=== PATIENT | female | born 1970 | race Caucasian/White ===

== ENCOUNTER 2017-08-06 09:30 | Emergency (ER) | payer MEDICARE ==
[2017-08-06 09:47] VITALS: BMI 26.2
[2017-08-06 10:07] VITALS: TEMP 98.3
--- NOTE | 2017-08-06 12:30 | RAD ---
PROCEDURE: Right Wrist Radiographs. HISTORY: wrist pain/swelling COMPARISON: 07/17/2015 FINDINGS: BONES: There is a prosthesis in the distal ulna. There has been previous fusion of the radius and carpal bones. The findings are unchanged. No acute fracture JOINTS: Normal. No dislocation. SOFT TISSUES: Normal. OTHER FINDINGS: None. IMPRESSION: No acute fracture
--- NOTE | 2017-08-06 12:36 | ED PDOC ---
Arrival/HPI - General Chief Complaint: Finger,Hand,&Wrist Time Seen by Provider: 08/06/17 10:34 Historian: Patient - History of Present Illness Narrative History of Present Illness (Text): 08/06/17 12:37 47yr old female with right wrist pain and swelling. pt with hx of multiple prior surgeries on right wrist. pt states she woke up yesterday with swelling to the dorsal aspect of the right wrist with pain. pt states she took naproxen for pain. pt states she is worried that there is an issue with the hardware within her wrist. pt denies trauma or injury. Pt denies numbness or weakness. pt states she does have residual limited extension of right 5th finger from prior surgery. no other complaints. Time/Duration: Other (1 day) Past Medical History - Provider Review Nursing Documentation Reviewed: Yes - Travel History Have you recently traveled outside [place] w/in the past 3 mons?: No - Infectious Disease Hx of Infectious Diseases: None - Tetanus Immunization Tetanus Immunization: Unknown - Cardiac Hx Cardiac Disorders: Yes Hx Circulatory Problems: Yes Hx Heart Murmur: Yes Hx Hypertension: Yes - Pulmonary Hx Respiratory Disorders: Yes Hx Asthma: Yes Hx Pulmonary Embolism: Yes (november 17 2014) - Neurological Hx Neurological Disorder: Yes Other/Comment: peripheral neuropathy in arms and legs - HEENT Hx HEENT Disorder: No - Renal Hx Renal Disorder: No - Endocrine/Metabolic Hx Endocrine Disorders: No - Hematological/Oncological Hx Blood Disorders: Yes Hx Anemia: Yes - Integumentary Hx Dermatological Disorder: Yes - Musculoskeletal/Rheumatological Hx Musculoskeletal Disorders: Yes Hx Degenerative Joint Disease: Yes Hx Falls: No Hx Herniated Disk: Yes (cervical lumbar) Hx Rheumatoid Arthritis: Yes Other/Comment: NECK PAIN - Gastrointestinal Hx Gastrointestinal Disorders: No - Genitourinary/Gynecological Hx Genitourinary Disorders: No - Psychiatric Hx Psychophysiologic Disorder: No Hx Substance Use: No - Surgical History Hx Appendectomy: Yes Hx Orthopedic Surgery: Yes (left wrist carpal tunnel repair right wrist) Hx Tubal Ligation: Yes - Anesthesia Hx Anesthesia: Yes Hx Anesthesia Reactions: No Hx Malignant Hyperthermia: No - Suicidal Assessment Feels Threatened In Home Enviroment: No Family/Social History - Physician Review Nursing Documentation Reviewed: Yes Family/Social History: Unknown Family HX Smoking Status: Never Smoked Hx Alcohol Use: No Hx Substance Use: No Hx Substance Use Treatment: No Allergies/Home Meds Allergies/Adverse Reactions: Allergies hydrocortisone Allergy (Verified 08/06/17 09:56) RASH latex Allergy (Verified 08/06/17 09:56) SHORTNESS OF BREATH nasal cannula Adverse Reaction (Uncoded 08/06/17 09:56) SHORTNESS OF BREATH Home Medications: Home Meds Medication Instructions Recorded Confirmed Prednisone [Prednisone] 1 tab PO DAILY 03/12/14 08/06/17 Tofacitinib Citrate [Xeljanz] 5 mg PO BID 11/17/14 08/06/17 Albuterol Sulfate [Ventolin Hfa] 2 puff IH BID PRN 06/07/15 08/06/17 Milnacipran HCl [Savella] 50 mg PO BID 06/25/15 08/06/17 Review of Systems - Review of Systems Constitutional: absent: Fatigue, Fevers Respiratory: absent: SOB, Cough Cardiovascular: absent: Chest Pain, Palpitations Gastrointestinal: absent: Abdominal Pain, Nausea, Vomiting Musculoskeletal: Arthralgias Skin: absent: Rash, Pruritis Psychiatric: absent: Anxiety, Depression Physical Exam Vital Signs Reviewed: Yes Vital Signs Temp Pulse Resp BP Pulse Ox 08/06/17 11:32 68 18 116/71 100 08/06/17 10:02 98.3 F 70 16 118/76 100 Temperature: Afebrile Blood Pressure: Normal Pulse: Regular Respiratory Rate: Normal Appearance: Positive for: Well-Appearing, Non-Toxic, Comfortable Pain Distress: None Mental Status: Positive for: Alert and Oriented X 3 - Systems Exam Head: Present: Atraumatic Respiratory/Chest: Present: Clear to Auscultation Cardiovascular: Present: Regular Rate and Rhythm Upper Extremity: Present: NORMAL PULSES, Tenderness (right wrist: + swelling noted to dorsal aspect of wrist over ulna; no erythema; limited rom of wrist; sensation and distal pulses intact. ), Swelling, Neurovascularly Intact, Capillary Refill < 2s. No: Normal ROM, Erythema, Deformity Neurological: Present: GCS=15 Skin: Present: Warm, Dry, Normal Color. No: Rashes Psychiatric: Present: Oriented x 3 Medical Decision Making ED Course and Treatment: 08/06/17 12:32 pt with right wrist pain; hx of prior surgery xray; FINDINGS: BONES: There is a prosthesis in the distal ulna. There has been previous fusion of the radius and carpal bones. The findings are unchanged. No acute fracture JOINTS: Normal. No dislocation. SOFT TISSUES: Normal. OTHER FINDINGS: None. IMPRESSION: No acute fracture pt placed in sugar tong splint; pt claims that there was erythema to a small portion of the dorsal wrist; There is no erythema at present time, but I will cover with keflex. pt was advised to f/u with orthopedist/surgeon within the next 2 days. impression: wrist pain motrin every 6 hours as needed for pain keflex; 1 capsule 4 times daily x 7 days follow up with the orthopedist within the next 2 days return if symptoms worsen,persist or if new symptoms develop. - RAD Interpretation Radiology Orders: 08/06/17 10:45 WRIST, RIGHT 3 VIEWS [RAD] Stat Procedures - Splinting Location: right wrist Hand-Made Type: fiberglass Splint: sugar tong Pre-Proc Neuro Vasc Exam: normal Post-Proc Neuro Vasc Exam: normal Disposition/Present on Arrival - Present on Arrival Any Indicators Present on Arrival: No History of DVT/PE: No History of Uncontrolled Diabetes: No Urinary Catheter: No History of Decub. Ulcer: No History Surgical Site Infection Following: None - Disposition Have Diagnosis and Disposition been Completed?: Yes Diagnosis: Wrist pain Disposition: HOME/ ROUTINE Disposition Time: 12:35 Patient Plan: Discharge Condition: GOOD Additional Instructions: tylenol every 4 hours as needed for pain keflex; 1 capsule 4 times daily x 7 days follow up with the orthopedist within the next 2 days return if symptoms worsen,persist or if new symptoms develop. Prescriptions: Cephalexin [Keflex] 500 mg PO QID #28 capsule Referrals: Reagan Francois MD [Staff Provider] - Follow up with primary [facility] [place] [Outside] - Follow up with primary Forms: [employer] (Syriac), WORK NOTE
[2017-08-06 13:04] VITALS: BP 117/72; PULSE 80; RESP 20; O2SAT 99
== END 2017-08-06 13:07 | disposition home or self-care (01) ==
LOC: ED 09:46
DX: M25.531 Pain in right wrist (principal); I10 Essential (primary) hypertension

== ENCOUNTER 2018-02-19 15:40 | Observation (INO) | payer MEDICARE, OTHER ==
[2018-02-19] MEDS ORDERED: Sodium Chloride 0.9% 1,000 ML IV STA ×2 (16:01→17:21)
[2018-02-19] MEDS ORDERED: Potassium Chloride 20 mEq/15 ml LIQ UD PO STA (16:14)
[2018-02-19 16:19] LABS: URINE BILIRUBIN NEGATIVE (NEGATIVE); URINE BLOOD NEGATIVE (NEGATIVE); URINE GLUCOSE (UA) NEGATIVE (NEGATIVE); URINE LEUKOCYTE ESTERASE NEGATIVE Leu/uL (NEGATIVE); URINE PROTEIN NEGATIVE mg/dL (<30 mg/dL); URINE UROBILINOGEN 0.2 E.U./dL (<1 E.U./dL)
--- NOTE | 2018-02-19 16:22 | ED PDOC ---
Arrival/HPI - General Chief Complaint: GI Problem Time Seen by Provider: 02/19/18 15:44 Historian: Patient - History of Present Illness Narrative History of Present Illness (Text): 02/19/18 16:19 47 yo F with past medical history of rheumatoid arthritis, complaining of intermittent nausea with vomiting for the past 2 years. Patient states that the nausea and vomiting comes in episodes and typically lasts for 1-2 days, however her current episode has been ongoing for about a week without improvement. States that she saw her allergy physician earlier today, had blood work done and was told that she had low potassium. She then called her primary care doctor who advised her to come to the emergency room to be evaluated and for possible observation in the hospital with possible consultation with a specialist. Patient states that the nausea with vomiting has never been worked up by a specialist and is not related to her RA or taking RA medications since the nausea and vomiting started prior to her taking RA medications. Otherwise reports no fever, chills, chest pain, palpitations, shortness of breath, abdominal pain, back pain, urinary symptoms, diarrhea. NAYAN Davila Past Medical History - Infectious Disease Hx of Infectious Diseases: None - Tetanus Immunization Tetanus Immunization: Unknown - Cardiac Hx Cardiac Disorders: Yes Hx Circulatory Problems: Yes Hx Heart Murmur: Yes Hx Hypertension: Yes - Pulmonary Hx Respiratory Disorders: Yes Hx Asthma: Yes Hx Pulmonary Embolism: Yes (november 17 2014) - Neurological Hx Neurological Disorder: Yes Other/Comment: peripheral neuropathy in arms and legs - HEENT Hx HEENT Disorder: No - Renal Hx Renal Disorder: No - Endocrine/Metabolic Hx Endocrine Disorders: No - Hematological/Oncological Hx Blood Disorders: Yes Hx Anemia: Yes - Integumentary Hx Dermatological Disorder: Yes - Musculoskeletal/Rheumatological Other/Comment: limited rom right wrist - Gastrointestinal Hx Gastrointestinal Disorders: No - Genitourinary/Gynecological Hx Genitourinary Disorders: No - Psychiatric Hx Psychophysiologic Disorder: No Hx Substance Use: No - Surgical History Hx Orthopedic Surgery: Yes (left wrist carpal tunnel repair right wrist radial carpal sx and fusion) - Anesthesia Hx Anesthesia: Yes Hx Anesthesia Reactions: No Hx Malignant Hyperthermia: No - Suicidal Assessment Feels Threatened In Home Enviroment: No Family/Social History Family/Social History: No Known Family HX Smoking Status: Never Smoked Hx Alcohol Use: No Hx Substance Use: No Hx Substance Use Treatment: No Allergies/Home Meds Allergies/Adverse Reactions: Allergies hydrocortisone Allergy (Verified 02/19/18 15:50) RASH latex Allergy (Verified 02/19/18 15:50) SHORTNESS OF BREATH nasal cannula Adverse Reaction (Uncoded 02/19/18 15:50) SHORTNESS OF BREATH Home Medications: Home Meds Medication Instructions Recorded Confirmed Milnacipran HCl [Savella] 50 mg PO BID 06/25/15 02/19/18 Aspirin [Lo-Dose Aspirin EC] 81 mg PO DAILY 02/19/18 02/19/18 Ibuprofen/Famotidine [Duexis 1 tab PO BID 02/19/18 02/19/18 800-26.6 mg Tablet] Montelukast [Singulair] 10 mg PO DAILY 02/19/18 02/19/18 Prednisone [Kaley] 5 mg PO DAILY 02/19/18 02/19/18 Tofacitinib Citrate [Xeljanz Xr] 11 mg PO DAILY 02/19/18 02/19/18 hydroCHLOROthiazide [Microzide] 50 mg PO DAILY 02/19/18 02/19/18 Review of Systems - Review of Systems Constitutional: absent: Fatigue, Fevers Respiratory: absent: SOB, Cough Cardiovascular: absent: Chest Pain, Palpitations Gastrointestinal: Nausea, Vomiting. absent: Abdominal Pain, Diarrhea Genitourinary Female: absent: Dysuria, Frequency Musculoskeletal: absent: Arthralgias, Back Pain Skin: absent: Rash, Pruritis, Skin Lesions Neurological: absent: Headache, Dizziness Physical Exam Vital Signs Temp Pulse Resp BP Pulse Ox 02/19/18 18:07 58 L 18 155/83 H 100 02/19/18 15:46 98.7 F 68 18 149/81 100 Temperature: Afebrile Blood Pressure: Normal Pulse: Regular Respiratory Rate: Normal Appearance: Positive for: Well-Appearing, Non-Toxic, Comfortable Pain Distress: None Mental Status: Positive for: Alert and Oriented X 3 - Systems Exam Head: Present: Atraumatic, Normocephalic Pupils: Present: PERRL Extroacular Muscles: Present: EOMI Conjunctiva: Present: Normal Mouth: Present: Dry Neck: Present: Normal Range of Motion. No: Lymphadenopathy Respiratory/Chest: Present: Clear to Auscultation, Good Air Exchange. No: Respiratory Distress, Accessory Muscle Use Cardiovascular: Present: Regular Rate and Rhythm, Normal S1, S2. No: Murmurs Abdomen: No: Tenderness, Distention, Peritoneal Signs, Rebound, Guarding Back: Present: Normal Inspection. No: CVA Tenderness, Midline Tenderness Upper Extremity: Present: Normal Inspection. No: Cyanosis, Edema Lower Extremity: Present: Normal Inspection. No: Edema Neurological: Present: GCS=15, CN II-XII Intact, Speech Normal, Motor Func Grossly Intact, Normal Sensory Function Skin: Present: Warm, Dry, Normal Color. No: Rashes Psychiatric: Present: Alert, Oriented x 3, Normal Insight, Normal Concentration Medical Decision Making ED Course and Treatment: 02/19/18 16:23 Patient had labs done earlier today and results reviewed, K 2.9. Rest of the labs from earlier today : wbc 7.9 / hgb 13.1 / hct 38.4 / plt 373 Na 136 / Cl 95 / Co2 29 / Bun 15 / creat 0.6 / glucose 95 / Ca 9.9 Plan : - IV - Labs - Zofran IV - CMP - UA - KCl PO x2 - KCl IV x2 riders EKG: NSR at 64 bpm, no acute ST changes, as read by PA. 02/19/18 17:10 Labs reviewed repeat K 3.4. KCl IV cancelled. Patient still given PO KCl. Case d/w Dr. Davila, who still request observation for dehydration and with GI consult to Dr. Amaro 02/19/18 17:15 Case d/w the hospitalist Dr. Barroso, agrees to plan for further observation. Patient notified of plan for further observation, which she agrees to. - Lab Interpretations Lab Results: 02/19/18 16:42 Lab Results 02/19/18 16:42: Sodium 137, Potassium 3.4 L, Chloride 98, Carbon Dioxide 27, Anion Gap 15, BUN 13, Creatinine 0.6 L, Est GFR ( Amer) > 60, Est GFR ( Non-Af Amer) > 60, Random Glucose 93, Calcium 10.0, Total Bilirubin 0.4, AST 35 , ALT 24, Alkaline Phosphatase 73, Total Protein 8.8 H, Albumin 5.0 H, Globulin 3.8, Albumin/Globulin Ratio 1.3 02/19/18 16:05: Urine Color Light yellow, Urine Appearance Clear, Urine pH 7.0, Ur Specific [place] <= 1.005, Urine Protein Negative, Urine Glucose (UA) Negative, Urine Ketones Negative, Urine Blood Negative, Urine Nitrate Negative, Urine Bilirubin Negative, Urine Urobilinogen 0.2, Ur Leukocyte Esterase Negative - Medication Orders Current Medication Orders: Acetaminophen (Tylenol 325mg Tab) 650 mg PO Q6H PRN PRN Reason: Fever >100.4 F Diphenhydramine HCl (Benadryl) 25 mg PO DAILY PRN PRN Reason: Allergy symptoms Sodium Chloride (Sodium Chloride 0.9%) 1,000 mls @ 100 mls/hr IV .Q10H STA Stop: 02/20/18 03:20 Potassium Chloride 40 meq/ (Sodium Chloride) 1,020 mls @ 100 mls/hr IV .[id number] [facility] Montelukast Sodium (Singulair) 10 mg PO DAILY [facility] Home Med - Milnacipran Hcl [ Savella] 50 Mg 50 mg PO BID [facility] Home Med - Tofacitinib Citrate [Xeljanz Xr] 11 Mg 11 mg PO DAILY [facility] Ondansetron HCl (Zofran Inj) 4 mg IVP Q12H PRN PRN Reason: Nausea/Vomiting Last Admin: 02/19/18 20:00 Dose: 4 mg IVP Administration Document 02/19/18 20:00 [facility] (Rec: 02/19/18 20:00 [place] [id number]) Charges for Administration # of IVP Administrations 1 Pantoprazole Sodium (Protonix Inj) 40 mg IVP DAILY [facility] Last Admin: 02/19/18 20:23 Dose: 40 mg IVP Administration Document 02/19/18 20:23 [facility] (Rec: 02/19/18 20:23 [place] [id number]) Charges for Administration # of IVP Administrations 1 Prednisone (Prednisone Tab) 5 mg PO DAILY [facility] Discontinued Medications Sodium Chloride (Sodium Chloride 0.9%) 1,000 mls @ 1,000 mls/hr IV .Q1H STA Stop: 02/19/18 17:00 Last Admin: 02/19/18 16:58 Dose: 1,000 mls/hr eMAR Start Stop Document 02/19/18 16:58 GMD (Rec: 02/19/18 16:59 GMD [id number]) Intravenous Solution Start Date 02/19/18 Start Time 16:58 End Date 02/19/18 End time 17:58 Total Infusion Time 60 Ondansetron HCl (Zofran Inj) 4 mg IVP STAT STA Stop: 02/19/18 16:02 Last Admin: 02/19/18 16:59 Dose: 4 mg IVP Administration Document 02/19/18 16:59 GMD (Rec: 02/19/18 16:59 GMD [id number]) Charges for Administration # of IVP Administrations 1 Potassium Chloride (Potassium Chloride Oral Soln) 40 meq PO STAT STA Stop: 02/19/18 16:15 Last Admin: 02/19/18 16:59 Dose: 40 meq - PA / CHIP SILO TENDER / Resident Statement /DO has reviewed & agrees with the documentation as recorded. Disposition/Present on Arrival - Present on Arrival Any Indicators Present on Arrival: No History of DVT/PE: No History of Uncontrolled Diabetes: No Urinary Catheter: No History of Decub. Ulcer: No History Surgical Site Infection Following: None - Disposition Have Diagnosis and Disposition been Completed?: Yes Diagnosis: Hypokalemia, Nausea and vomiting, Dehydration Disposition: HOSPITALIZED Disposition Time: 17:15 Patient Plan: Observation Patient Problems: Current Active Problems Problem Status Onset Dehydration Acute Hypokalemia Acute Nausea and vomiting Acute Condition: STABLE
[2018-02-19 16:31] LABS: URINE APPEARANCE CLEAR (CLEAR); URINE COLOR LIGHT YELLOW (YELLOW)
[2018-02-19 16:56] LABS: ALB/GLOB RATIO 1.3 (1.1-1.8); ALT/SGPT 24 U/L (7-56); AST/SGOT 35 U/L (14-36); BLOOD UREA NITROGEN 13 mg/dL (7-21); GFR NON-AFRICAN AMERICAN > 60
[2018-02-19] MEDS ORDERED: Potassium Chloride 20 mEq/15 ml LIQ UD PO ONE (17:30)
[2018-02-19] MEDS ORDERED: DiphenhydrAMINE 12.5 mg/5 ml LIQ UD (5 ml) PO PRN (18:51)
--- NOTE | 2018-02-19 18:51 | CP.PCM.HP ---
<ChaparroRaad Jack - Last Filed: 02/19/18 20:31> History of Present Illness - History of Present Illness History of Present Illness: Raad Mayfield PGY1, History and Physical for Dr Barroso Pt is a 47 yo female with a PMH of RA, fibro, HTN, asthma, OA, raynaud's syndrome, PE who presents to the ED complaining of vomiting. Pt states she has experienced vomiting without nausea for the past 2 years. She has had 2-3 episodes of vomiting per month up until this time. She states that the episodes have started to occur more often which worried her and prompted her to present to the ED. Pt reports vomiting into her mouth after she eats or drinks, this occurs without warning and no associated nausea. There is no particular time of day when this occurs. Pt reports sometimes only vomiting "stomach acid". Pt denies abdominal pain, fever, nausea during these episodes. She states that she tried tums, but it did not alleviate the vomiting. Pt denies trouble swallowing or a sour taste in her mouth in the morning when she wakes up. Pt has never had an endoscopy. She denies excessive NSAID use. Pt admits to daily marijuana use for 'years'. A 12 point ROS was obtained and added to HPI where appropriate. 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 Home meds: Duexis BID, Prednisone 5mg daily, xelijenz xr 11m, savella BID, HCTZ 25mg, ASA 81mg, Singulair 10mg Allergies: hydrocortisone causes hives PMD: Dr Gilmore Factory Manager: Kemar Present on Admission - Present on Admission Any Indicators Present on Admission: Yes History of DVT/PE: Yes Review of Systems - Review of Systems Review of Systems: a 12 point ROS was obtained and added to HPI where appropriate Past Patient History - Infectious Disease Hx of Infectious Diseases: None - Tetanus Immunizations Tetanus Immunization: Unknown - Past Medical History & Family History Past Medical History?: Yes - Past Social History Smoking Status: Never Smoked - CARDIAC Hx Cardiac Disorders: Yes Hx Circulatory Problems: Yes Hx Heart Murmur: Yes Hx Hypertension: Yes - PULMONARY Hx Respiratory Disorders: Yes Hx Asthma: Yes Hx Pulmonary Embolism: Yes (november 17 2014) - NEUROLOGICAL Hx Neurological Disorder: Yes Other/Comment: peripheral neuropathy in arms and legs - HEENT Hx HEENT Problems: No - RENAL Hx Chronic Kidney Disease: No - ENDOCRINE/METABOLIC Hx Endocrine Disorders: No - HEMATOLOGICAL/ONCOLOGICAL Hx Blood Disorders: Yes Hx Anemia: Yes - INTEGUMENTARY Hx Dermatological Problems: Yes - MUSCULOSKELETAL/RHEUMATOLOGICAL Other/Comment: limited rom right wrist - GASTROINTESTINAL Hx Gastrointestinal Disorders: No - GENITOURINARY/GYNECOLOGICAL Hx Genitourinary Disorders: No - PSYCHIATRIC Hx Psychophysiologic Disorder: No Hx Substance Use: No - SURGICAL HISTORY Hx Orthopedic Surgery: Yes (left wrist carpal tunnel repair right wrist radial carpal sx and fusion) - ANESTHESIA Hx Anesthesia: Yes Hx Anesthesia Reactions: No Hx Malignant Hyperthermia: No Meds Home Medications: Home Medication List Medication Instructions Recorded Confirmed Type Methylprednisolone [Medrol Dose 4 mg PO ASDIR #21 mg 02/21/18 Rx Pack (21 tabs)] Ondansetron HCl [Zofran] 4 mg PO Q8 7 Days #21 tablet 02/21/18 Rx Pantoprazole [Protonix EC Tab] 40 mg PO ACB 7 Days #7 ect 02/21/18 Rx Allergies/Adverse Reactions: Allergies Allergy/AdvReac Type Severity Reaction Status Date / Time hydrocortisone Allergy RASH Verified 02/19/18 15:50 latex Allergy SHORTNESS Verified 02/19/18 15:50 OF BREATH nasal cannula AdvReac SHORTNESS Uncoded 02/19/18 15:50 OF BREATH Physical Exam - Head Exam Head Exam: ATRAUMATIC, NORMOCEPHALIC - ENT Exam ENT Exam: Mucous Membranes Moist - Respiratory Exam Respiratory Exam: Clear to Auscultation Bilateral, NORMAL BREATHING PATTERN - Cardiovascular Exam Cardiovascular Exam: REGULAR RHYTHM, RRR, +S1, +S2 - GI/Abdominal Exam GI & Abdominal Exam: Normal Bowel Sounds, Soft. absent: Tenderness - Extremities Exam Extremities exam: Positive for: full ROM. Negative for: calf tenderness - Neurological Exam Neurological exam: Alert, Oriented x3 - Psychiatric Exam Psychiatric exam: Normal Affect, Normal Mood - Skin Skin Exam: Dry, Normal Color, Warm Results - Vital Signs Recent Vital Signs: Last Vital Signs Temp 98.7 F 02/19/18 15:46 Pulse 58 L 02/19/18 18:07 Resp 18 02/19/18 18:07 BP 155/83 H 02/19/18 18:07 Pulse Ox 100 02/19/18 18:07 - Labs Result Diagrams: 02/19/18 16:42 Assessment & Plan - Assessment and Plan (Free Text) Assessment: Pt is a 47 yo female with a PMH of RA, fibro, HTN, asthma, OA, raynaud's syndrome, PE who presents to the ED complaining of vomiting. Plan: Vomiting without nausea or abdominal pain - symptoms intermittent for the past 2 years, increased frequency in the past week - possible esophageal dysmotility disorder, does not seem infectious in etiology , however pt without dysphasia - holding off antibiotics at this time, no indication for infectious etiology - start IV pantoprazole 40mg - consulted Estevez, GI - procal - NS 100ml/hr with potassium 40meq - holding home ASA at this time Hypokalemia - replete PRN - pt replete in ED - now being given 40meq within maintenance fluid RA - continue tofacitinib - prednisone 5mg PO - Benadryl 25 PO for allergic symptoms Fibromyalgia - continue Savella (pt has been on this medication for the past 9 years) HLD - TC 282, LDL 165, - pt not on home statin, will hold off on starting at this time Ppx - SCD - HHD (pt without symptoms of dysphagia or odynophagia) - pantoprazole 40mg IV Pt seen, examined, assessment and plan discussed with Dr Chio Mayfield PGY1 - Date & Time Date: 02/19/18 Time: 18:00 <Riri Barroso - Last Filed: 02/21/18 16:06> Results - Vital Signs Recent Vital Signs: Last Vital Signs Temp 98.3 F 02/21/18 11:40 Pulse 66 02/21/18 11:40 Resp 18 02/21/18 11:40 BP 106/72 02/21/18 11:40 Pulse Ox 100 02/21/18 11:40 - Labs Result Diagrams: 02/21/18 06:20 02/21/18 06:20 Labs: Laboratory Results - last 24 hr 02/21/18 02/21/18 06:20 06:20 WBC 11.2 H D RBC 4.17 Hgb 12.2 Hct 37.2 MCV 89.2 MCH 29.3 MCHC 32.8 RDW 15.5 H Plt Count 375 MPV 9.9 Gran % 85.2 H Lymph % (Auto) 8.4 L [place] % (Auto) 6.3 H Eos % (Auto) 0.0 L Baso % (Auto) 0.1 Gran # 9.55 H Lymph # (Auto) 0.9 L [place] # (Auto) 0.7 H Eos # (Auto) 0.0 Baso # (Auto) 0.01 Sodium 140 Potassium 4.9 Chloride 107 Carbon Dioxide 25 Anion Gap 13 BUN 10 Creatinine 0.6 L Est GFR ( Amer) > 60 Est GFR (Non-Af Amer) > 60 Random Glucose 115 H Calcium 9.5 Total Bilirubin 0.5 AST 29 ALT 20 Alkaline Phosphatase 48 Total Protein 7.8 Albumin 4.5 Globulin 3.3 Albumin/Globulin Ratio 1.3 Attending/Attestation - Attestation I have personally seen and examined this patient.: Yes I have fully participated in the care of the patient.: Yes I have reviewed all pertinent clinical information: Yes Notes (Text): 02/21/18 16:01 Attending note; Patient seen and examined with resident in ER. Patient is alert and awake. Complaining of vomiting. Denies any diarrhea, urinary symptoms. Denies any fevers, chills. Patient is a 47 year old female with PMH of rheumatoid arthritis, fibromyalgia ,HTN, asthma, Raynaud's syndrome, previous history of pulmonary embolism was admitted for vomiting. Pt states she has experienced vomiting without nausea for the past 2 years on and off. Currently the frequency of vomiting is increasing. Patient was found to be hypokalemic during outpatient workup. And refer to the ER for vomiting/dehydration and hypokalemia. Started on IV fluids with potassium supplementation. Monitor electrolytes closely. GI evaluation requested. Might need EGD. History of rheumatoid arthritis; avoid NSAIDs. Continue Protonix. Continue Savella nad xeljanz per bilingual teacher assistant. History of asthma; currently stable respiratory status. Upon discharge the patient will follow-up with PMD Dr. Davila.
[2018-02-19 22:53] VITALS: BMI 21.6
[2018-02-19] MEDS ORDERED: Pneumococcal 23-Valent Vaccine IM ONE (22:53)
[2018-02-20 07:09] LABS: BASO # 0.02 K/mm3 (0.0-2.0); BASO % 0.3 % (0.0-3.0); EOS # 0.1 (0.0-0.7); EOS % 1.3 % (1.5-5.0); GRAN # 3.52 (1.4-6.5); GRAN % 55.9 % (50.0-68.0); HEMOGLOBIN 11.6 g/dL (12.0-16.0); LYMPH # 1.6 (1.2-3.4); LYMPH % 25.3 % (22.0-35.0); MEAN CELL VOLUME 88.9 fl (80.0-105.0); MEAN CORPUSCULAR HEMOGLOBIN 29.4 pg (25.0-35.0); MEAN PLATELET VOLUME 9.7 fl (7.0-11.0); MONO # 1.1 (0.1-0.6); MONO % 17.2 % (1.0-6.0); RBC 3.95 10^6/uL (3.5-6.1); RED CELL DISTRIBUTION WIDTH 15.4 % (11.5-14.5); WHITE BLOOD COUNT 6.3 10^3/ul (4.5-11.0)
[2018-02-20 07:22] LABS: ALB/GLOB RATIO 1.4 (1.1-1.8); ALT/SGPT 20 U/L (7-56); AST/SGOT 31 U/L (14-36); BLOOD UREA NITROGEN 10 mg/dL (7-21); GFR NON-AFRICAN AMERICAN > 60
[2018-02-20] MEDS: Albuterol-Ipratrop 3 mg / 0.5 (3 ml) UD IH PRN ×2 (07:47→13:38)
[2018-02-20] MEDS ORDERED: Barium Sulfate Susp 2.1% w/v, 2.0% w/w 450 mL Bottle PO ONE (07:52)
--- NOTE | 2018-02-20 08:14 | CON ---
DATE: 02/20/2018 GASTROENTEROLOGY CONSULTATION REQUESTING PHYSICIAN: Riri Barroso MD. REASON FOR CONSULTATION: I have been asked to see this 47-year-old female with a history of rheumatoid arthritis, Raynaud syndrome, fibromyalgia, asthma, hypertension, and pulmonary embolus who comes to the hospital with increased frequency of vomiting. The patient apparently has had intermittent vomiting for the last 2 years. She states that this averages 1 to 2 times a month. Over the last several days, the patient has had an increased frequency of vomiting. She vomited three times the day prior to admission to the hospital. She denies any abdominal pain with a vomiting, hematemesis, melena, rectal bleeding, fevers, or chills. The patient does smoke marijuana at night intermittently to help her sleep. The patient states that she does not believe that there is any relationship between the vomiting and her smoking marijuana. PAST MEDICAL HISTORY: As above. Again, the patient has a history of rheumatoid arthritis, Raynaud syndrome, fibromyalgia, asthma, hypertension, and pulmonary embolus. PAST SURGICAL HISTORY: Notable for carpal tunnel surgery, appendectomy, and tubal ligation. FAMILY HISTORY: Noncontributory. SOCIAL HISTORY: She denies cigarette smoking or alcohol use. She smokes marijuana intermittently. REVIEW OF SYSTEMS: A 14-point review of systems is notable for vomiting without abdominal pain. MEDICATIONS AT HOME: Include hydrochlorothiazide, Xeljanz, prednisone, Singulair, Savella, Duexis, and aspirin. PHYSICAL EXAMINATION: GENERAL: Thin female, lying in bed, in no acute distress. VITAL SIGNS: Reveal temperature of 99, blood pressure 119/76, heart rate is 70, BMI is 21.6. HEENT: Reveal sclerae to be white. Conjunctivae pale. NECK: Supple. CHEST: Lungs are clear. HEART: Reveals a regular rate and rhythm. ABDOMEN: Soft, nontender. EXTREMITIES: Show no edema. LABORATORY DATA: Reveals BUN 10, creatinine 0.6. AST, ALT, alk phos are all normal. CBC reveals white blood cell count 6.3, hemoglobin 11.6, platelet count 345,000. IMPRESSION: A 47-year-old female with chronic vomiting, known marijuana use with recent increase in frequency of her vomiting. I suspect that her vomiting is secondary to her marijuana use. She denies any abdominal pain, hematemesis, or rectal bleeding. RECOMMENDATIONS: 1. We will request a CT scan of the abdomen and pelvis. 2. We will schedule the patient for an upper endoscopy for the morning. John Estevez MD
[2018-02-20 08:49] LABS: BARBITURATES, UR NEGATIVE (NEGATIVE); BENZODIAZEPINES, UR NEGATIVE (NEGATIVE); OPIATES, UR NEGATIVE (NEGATIVE); PHENCYCLIDINE, UR NEGATIVE (NEGATIVE)
--- NOTE | 2018-02-20 09:31 | RAD ---
Date of service: 02/19/2018 HISTORY: hx of RA; at risk for serositis COMPARISON: 07/19/2014 TECHNIQUE: Chest PA and lateral FINDINGS: LUNGS: No active pulmonary disease. PLEURA: No significant pleural effusion identified. No pneumothorax apparent. CARDIOVASCULAR: Normal. OSSEOUS STRUCTURES: No significant abnormalities. VISUALIZED UPPER ABDOMEN: Normal. OTHER FINDINGS: None. IMPRESSION: No active disease.
[2018-02-20] MEDS ORDERED: TOFACITINIB CITRATE 11 MG PO SCH (10:00)
[2018-02-20] MEDS ORDERED: MILNACIPRAN HCL 50 MG PO SCH (10:00)
--- NOTE | 2018-02-20 11:22 | CT ---
Date of service: 02/20/2018 PROCEDURE: CT Abdomen and Pelvis without intravenous contrast HISTORY: vomitting COMPARISON: None. TECHNIQUE: Without contrast.. Contrast dose: Radiation dose: Total exam DLP = 288 mGy-cm. This CT exam was performed using one or more of the following dose reduction techniques: Automated exposure control, adjustment of the mA and/or kV according to patient size, and/or use of iterative reconstruction technique. FINDINGS: LOWER THORAX: Unremarkable. LIVER: Unremarkable. No gross lesion or ductal dilatation. GALLBLADDER AND BILE DUCTS: Unremarkable. PANCREAS: Unremarkable. No gross lesion or ductal dilatation. SPLEEN: Unremarkable. ADRENALS: Unremarkable. No mass. KIDNEYS AND URETERS: Unremarkable. No hydronephrosis. No solid mass. VASCULATURE: Unremarkable. No aortic aneurysm. BOWEL: Unremarkable. No obstruction. No gross mural thickening. Moderate constipation APPENDIX: Unremarkable. Normal appendix. PERITONEUM: Unremarkable. No free fluid. No free air. LYMPH NODES: Unremarkable. No enlarged lymph nodes. BLADDER: Unremarkable. REPRODUCTIVE: Unremarkable. BONES: No acute fracture. OTHER FINDINGS: None. IMPRESSION: Moderate constipation. No acute intra-abdominal findings
[2018-02-20] MEDS: MethylPREDNISolone 40 mg Vial IVP SCH ×2 (12:02→21:40)
[2018-02-20 14:50] VITALS: TEMP 98.3
--- NOTE | 2018-02-20 15:21 | CP.PCM.PN ---
<Blade Kaufman - Last Filed: 02/20/18 15:17> Subjective - Date & Time of Evaluation Date of Evaluation: 02/20/18 Time of Evaluation: 07:00 - Subjective Subjective: Blade Kaufman, PGY1 Medicine Progress Note for Dr. Barroso Patient was seen at bedside this morning. She clarified that she has had vomiting for almost two years. However, it has worsened in the past few weeks. Patient does not have any nausea or abdominal pain. She denies dysphagia, recent travel, sick contacts, and new foods. No episodes of emesis during hospital admission. She says that she has lost at least 10 pounds related to the vomiting in the past few weeks. She denies abdominal pain, chest pain, shortness of breath, bowel/bladder changes, numbness/tingling of extremities. A full 12 point ROS was conducted and unremarkable except as stated above. Objective - Vital Signs/Intake and Output Vital Signs (last 24 hours): Temp Pulse Resp BP Pulse Ox 98.3 F 80 18 118/73 99 02/20/18 14:00 02/20/18 14:00 02/20/18 14:00 02/20/18 14:00 02/20/18 14:00 - Medications Medications: Current Medications Acetaminophen (Tylenol 325mg Tab) 650 mg PO Q6H PRN PRN Reason: Fever >100.4 F Albuterol/Ipratropium (Duoneb 3 Mg/0.5 Mg (3 Ml) Ud) 3 ml IH Q2H PRN PRN Reason: Shortness of Breath Last Admin: 02/20/18 13:38 Dose: 3 ml Diphenhydramine HCl (Benadryl) 25 mg PO DAILY PRN PRN Reason: Allergy symptoms Potassium Chloride 40 meq/ (Sodium Chloride) 1,020 mls @ 100 mls/hr IV .[id number] [facility] Last Admin: 02/20/18 12:01 Dose: 100 mls/hr Methylprednisolone (Solu-Medrol) 40 mg IVP Q12 [facility] Last Admin: 02/20/18 12:02 Dose: 40 mg Montelukast Sodium (Singulair) 10 mg PO HS [facility] Home Med - Milnacipran Hcl [ Savella] 50 Mg 50 mg PO BID [facility] Last Admin: 02/20/18 10:04 Dose: 50 mg Home Med - Tofacitinib Citrate [Xeljanz Xr] 11 Mg 11 mg PO DAILY [facility] Last Admin: 02/20/18 10:04 Dose: Not Given Ondansetron HCl (Zofran Inj) 4 mg IVP Q12H PRN PRN Reason: Nausea/Vomiting Last Admin: 02/19/18 20:00 Dose: 4 mg Pantoprazole Sodium (Protonix Ec Tab) 40 mg PO ACB [facility] - Labs Labs: 02/20/18 06:30 02/20/18 06:30 - Constitutional Appears: Well, No Acute Distress - Head Exam Head Exam: ATRAUMATIC, NORMAL INSPECTION, NORMOCEPHALIC - Eye Exam Eye Exam: EOMI, Normal appearance, PERRL - ENT Exam ENT Exam: Mucous Membranes Moist, Normal Exam - Neck Exam Neck Exam: Full ROM, Normal Inspection. absent: Lymphadenopathy - Respiratory Exam Respiratory Exam: Clear to Ausculation Bilateral, Wheezes, NORMAL BREATHING PATTERN. absent: Rales, Rhonchi, Respiratory Distress - Cardiovascular Exam Cardiovascular Exam: REGULAR RHYTHM, +S1, +S2. absent: Murmur - GI/Abdominal Exam GI & Abdominal Exam: Soft, Normal Bowel Sounds. absent: Tenderness - Extremities Exam Extremities Exam: Full ROM, Normal Capillary Refill, Normal Inspection. absent : Joint Swelling, Pedal Edema, Tenderness - Back Exam Back Exam: NORMAL INSPECTION - Neurological Exam Neurological Exam: Alert, Awake, CN II-XII Intact, Normal Gait, Oriented x3 Neuro motor strength exam: Left Upper Extremity: 5, Right Upper Extremity: 5, Left Lower Extremity: 5, Right Lower Extremity: 5 - Psychiatric Exam Psychiatric exam: Normal Affect, Normal Mood - Skin Skin Exam: Dry, Intact, Normal Color, Warm Assessment and Plan - Assessment and Plan (Free Text) Assessment: Patient is a 47 yo female with a PMH of RA, fibromyalgia, HTN, asthma, OA, raynaud's syndrome, and PE who presents to the ED complaining of vomiting for almost 2 years that has worsened in the past few weeks. GI was consulted. Patient will be monitored on the floor. Plan: Worsening Vomiting w/o Associated Nausea or Abdominal Pain - As per GI recs, f/u CT abdomen/pelvis with oral contrast - Plan for upper endoscopy tomorrow morning - vomiting intermittent for the past 2 years, increased frequency in the past few weeks - GI consulted. Recs appreciated. - procal negative, afebrile, no leukocytosis; low suspicion for infectious etiology - zofran prn, although no subjective complaints of nausea Asthma - Wheezing noted on physical exam - duonebs q2 prn - IV steroids 40 mg q 12, taper as needed - c/w singulair Hypokalemia - improving - K is 3.9 now - 3.4 in ED - repleted - EKG: NSR. No ST or T wave changes. RA - c/w tofacitinib - Benadryl 25 PO for allergic symptoms Fibromyalgia - continue Savella (pt has been on this medication for the past 9 years) HLD - TC 282, LDL 165 - pt not on home statin, will hold off on starting at this time Ppx - DVT ppx: SCD - GI ppx: protonix 40 mg PO Dispo: Please keep patient NPO after midnight for planned upper endoscopy for tomorrow. Monitor on floor. Case was discussed and reviewed with Attending Physician, Dr. Barroso. <Riri Barroso - Last Filed: 02/21/18 16:08> Objective - Vital Signs/Intake and Output Vital Signs (last 24 hours): Temp Pulse Resp BP Pulse Ox 98.3 F 66 18 106/72 100 02/21/18 11:40 02/21/18 11:40 02/21/18 11:40 02/21/18 11:40 02/21/18 11:40 Intake and Output: 02/21/18 02/21/18 06:59 18:59 Intake Total 900 Balance 900 - Labs Labs: 02/21/18 06:20 02/21/18 06:20 Attending/Attestation - Attestation I have personally seen and examined this patient.: Yes I have fully participated in the care of the patient.: Yes I have reviewed all pertinent clinical information, including history, physical exam and plan: Yes Notes (Text): 02/21/18 16:07 Attending note; Patient seen and examined with resident. Patient is alert and awake. Denies any nausea or vomiting. Patient is a 47 year old female with PMH of rheumatoid arthritis, fibromyalgia ,HTN, asthma, Raynaud's syndrome, previous history of pulmonary embolism was admitted for vomiting. Patient states she has experienced vomiting without nausea for the past 2 years on and off. Currently the frequency of vomiting is increasing. Admitted for vomiting/dehydration and hypokalemia. Started on IV fluids with potassium supplementation. Potassium level is normal. GI evaluation appreciated .CT abdomen and pelvis showed moderate constipation . Plan for EGD tomorrow. History of marijuana use. History of rheumatoid arthritis; avoid NSAIDs. Continue Protonix. Continue Savella nad xeljanz per new grad rn. History of asthma; started on DuoNeb treatment. Started on IV steroidal for acute exacerbation. Upon discharge the patient will follow-up with PMD Dr. Davila.
--- NOTE | 2018-02-20 21:14 | CARD ---
APPROVED REPORT Date of service: 02/19/2018 EKG Measurement Heart [id number] <Conclusion> Normal sinus rhythm Normal ECG
[2018-02-20] MEDS: MILNACIPRAN HCL 50 MG PO SCH (21:47)
[2018-02-21 07:06] LABS: BASO # 0.01 K/mm3 (0.0-2.0); BASO % 0.1 % (0.0-3.0); GRAN # 9.55 (1.4-6.5); GRAN % 85.2 % (50.0-68.0); HEMOGLOBIN 12.2 g/dL (12.0-16.0); LYMPH # 0.9 (1.2-3.4); LYMPH % 8.4 % (22.0-35.0); MEAN CELL VOLUME 89.2 fl (80.0-105.0); MEAN CORPUSCULAR HEMOGLOBIN 29.3 pg (25.0-35.0); MEAN CORPUSCULAR HGB CONC 32.8 g/dl (31.0-37.0); MEAN PLATELET VOLUME 9.9 fl (7.0-11.0); MONO # 0.7 (0.1-0.6); MONO % 6.3 % (1.0-6.0); RBC 4.17 10^6/uL (3.5-6.1); RED CELL DISTRIBUTION WIDTH 15.5 % (11.5-14.5); WHITE BLOOD COUNT 11.2 10^3/ul (4.5-11.0)
[2018-02-21 07:15] LABS: ALB/GLOB RATIO 1.3 (1.1-1.8); ALBUMIN 4.5 g/dL (3.0-4.8); ALT/SGPT 20 U/L (7-56); AST/SGOT 29 U/L (14-36); BLOOD UREA NITROGEN 10 mg/dL (7-21); CALCIUM 9.5 mg/dL (8.4-10.5); GFR NON-AFRICAN AMERICAN > 60
[2018-02-21] MEDS ORDERED: Pantoprazole 40 mg EC Tab PO SCH (07:30)
[2018-02-21] MEDS ORDERED: Propofol 10 mg/ml Inj (20 ML) ONE (10:34)
[2018-02-21] MEDS ORDERED: Lidocaine PF 2% (5 ml) Inj (For Cardiac Arrhy) ONE (10:35)
[2018-02-21] MEDS ORDERED: Sodium Chloride 0.9% 1,000 ML IV SCH (11:00)
[2018-02-21] MEDS: MethylPREDNISolone 40 mg Vial IVP SCH (11:44)
[2018-02-21] MEDS: MILNACIPRAN HCL 50 MG PO SCH (11:44)
[2018-02-21 13:29] VITALS: BP 106/72; PULSE 66; RESP 18; O2SAT 100
--- NOTE | 2018-02-21 17:05 | CP.PCM.DIS ---
<Blade Kaufman - Last Filed: 02/21/18 16:54> Provider - Provider Date of Admission: 02/19/18 17:23 Attending physician: Riri Barroso MD Primary care physician: Tejinder Davila DO Consults: GI: Dr. Estevez Time Spent in preparation of Discharge (in minutes): 40 Hospital Course - Lab Results Lab Results: Most Recent Lab Values WBC 11.2 10^3/ul (4.5-11.0) H D 02/21/18 06:20 RBC 4.17 10^6/uL (3.5-6.1) 02/21/18 06:20 Hgb 12.2 g/dL (12.0-16.0) 02/21/18 06:20 Hct 37.2 % (36.0-48.0) 02/21/18 06:20 MCV 89.2 fl (80.0-105.0) 02/21/18 06:20 MCH 29.3 pg (25.0-35.0) 02/21/18 06:20 MCHC 32.8 g/dl (31.0-37.0) 02/21/18 06:20 RDW 15.5 % (11.5-14.5) H 02/21/18 06:20 Plt Count 375 10^3/uL (120.0-450.0) 02/21/18 06:20 MPV 9.9 fl (7.0-11.0) 02/21/18 06:20 Gran % 85.2 % (50.0-68.0) H 02/21/18 06:20 Lymph % (Auto) 8.4 % (22.0-35.0) L 02/21/18 06:20 Leon % (Auto) 6.3 % (1.0-6.0) H 02/21/18 06:20 Eos % (Auto) 0.0 % (1.5-5.0) L 02/21/18 06:20 Baso % (Auto) 0.1 % (0.0-3.0) 02/21/18 06:20 Gran # 9.55 (1.4-6.5) H 02/21/18 06:20 Lymph # (Auto) 0.9 (1.2-3.4) L 02/21/18 06:20 Leon # (Auto) 0.7 (0.1-0.6) H 02/21/18 06:20 Eos # (Auto) 0.0 (0.0-0.7) 02/21/18 06:20 Baso # (Auto) 0.01 K/mm3 (0.0-2.0) 02/21/18 06:20 Sodium 140 mmol/L (132-148) 02/21/18 06:20 Potassium 4.9 mmol/L (3.6-5.0) 02/21/18 06:20 Chloride 107 mmol/L (98-107) 02/21/18 06:20 Carbon Dioxide 25 mmol/L (21-33) 02/21/18 06:20 Anion Gap 13 (10-20) 02/21/18 06:20 BUN 10 mg/dL (7-21) 02/21/18 06:20 Creatinine 0.6 mg/dl (0.7-1.2) L 02/21/18 06:20 Est GFR ( Amer) > 60 02/21/18 06:20 Est GFR (Non-Af Amer) > 60 02/21/18 06:20 Random Glucose 115 mg/dL (70-110) H 02/21/18 06:20 Calcium 9.5 mg/dL (8.4-10.5) 02/21/18 06:20 Phosphorus 2.6 mg/dL (2.5-4.5) 02/20/18 06:30 Magnesium 1.9 mg/dL (1.7-2.2) 02/20/18 06:30 Total Bilirubin 0.5 mg/dL (0.2-1.3) 02/21/18 06:20 AST 29 U/L (14-36) 02/21/18 06:20 ALT 20 U/L (7-56) 02/21/18 06:20 Alkaline Phosphatase 48 U/L (38-126) 02/21/18 06:20 Total Protein 7.8 g/dL (5.8-8.3) 02/21/18 06:20 Albumin 4.5 g/dL (3.0-4.8) 02/21/18 06:20 Globulin 3.3 gm/dL 02/21/18 06:20 Albumin/Globulin Ratio 1.3 (1.1-1.8) 02/21/18 06:20 Procalcitonin 0.05 NG/ML (0.19-0.49) L 02/20/18 07:30 Urine Color Light yellow (YELLOW) 02/19/18 16:05 Urine Appearance Clear (CLEAR) 02/19/18 16:05 Urine pH 7.0 (4.7-8.0) 02/19/18 16:05 Ur Specific [place] <= 1.005 (1.005-1.035) 02/19/18 16:05 Urine Protein Negative mg/dL (<30 mg/dL) 02/19/18 16:05 Urine Glucose (UA) Negative mg/dL (NEGATIVE) 02/19/18 16:05 Urine Ketones Negative mg/dL (NEGATIVE) 02/19/18 16:05 Urine Blood Negative (NEGATIVE) 02/19/18 16:05 Urine Nitrate Negative (NEGATIVE) 02/19/18 16:05 Urine Bilirubin Negative (NEGATIVE) 02/19/18 16:05 Urine Urobilinogen 0.2 E.U./dL (<1 E.U./dL) 02/19/18 16:05 Ur Leukocyte Esterase Negative Freda/uL (NEGATIVE) 02/19/18 16:05 Urine HCG, Qual Negative (NEGATIVE) 02/20/18 08:15 Urine Opiates Screen Negative (NEGATIVE) 02/20/18 08:15 Urine Methadone Screen Negative (NEGATIVE) 02/20/18 08:15 Ur Barbiturates Screen Negative (NEGATIVE) 02/20/18 08:15 Ur Phencyclidine Scrn Negative (NEGATIVE) 02/20/18 08:15 Ur Amphetamines Screen Negative (NEGATIVE) 02/20/18 08:15 U Benzodiazepines Scrn Negative (NEGATIVE) 02/20/18 08:15 U Oth Cocaine Metabols Negative (NEGATIVE) 02/20/18 08:15 U Cannabinoids Screen Positive (NEGATIVE) H 02/20/18 08:15 - Hospital Course Hospital Course: Blade Kaufman, PGY1 Discharge Summary for Dr. Barroso Hospital Admission: Patient is a 47 year old female with a PMHx of RA, fibromyalgia, HTN, asthma, OA , Raynaud's Syndrome, PE who presents to the ED on 02/19 complaining of vomiting. Patient states she has experienced vomiting without nausea for the past 2 years. She has had 2-3 episodes of vomiting per month up until this time , in which it has worsened. This prompted her to present to the ED. She denies abdominal pain, fever, nausea during these episodes. Patient admits to occasional marijuana use for many years. In the ED, EKG was NSR. CXR showed no active disease. Patient was admitted to med/surg for worsening vomiting. Patient examined by the medical team. She initially presented with hypokalemia likely due to her vomiting; her K was repleted. She also had some wheezing on lung exam and was given treatment for her asthma. GI was consulted. Patient had no episodes of emesis during her actual hospital course. Her labs were also stable and she had no signs of active bleed or infection. GI recommended Abdomen /Pelvis CT with oral contrast. CT findings showed moderate constipation with no acute intra-abdominal findings. GI recommended that she go for an upper endoscopy. Results of the upper endoscopy on 02/21 showed gastritis. Patient has been hemodynamically stable and is safe for discharge. Upon Discharge: Patient is cleared by GI for discharge. Patient will follow up with her PMD and a Police Stenographer upon discharge. Patient will c/w her home meds as prescribed. She is also given zofran, protonix , and a medrol dose pack upon discharge. Case was discussed and reviewed with Attending Physician, Dr. Barroso Discharge Exam - Head Exam Head Exam: ATRAUMATIC, NORMAL INSPECTION, NORMOCEPHALIC - Eye Exam Eye Exam: EOMI, Normal appearance, PERRL Pupil Exam: NORMAL ACCOMODATION, PERRL - ENT Exam ENT Exam: Mucous Membranes Moist, Normal Exam - Neck Exam Neck exam: Full Rom, Normal Inspection - Respiratory Exam Respiratory Exam: Clear to PA & Lateral, NORMAL BREATHING PATTERN, UNREMARKABLE. absent: Chest Wall Tenderness, Rales, Rhonchi, Wheezes, Respiratory Distress - Cardiovascular Exam Cardiovascular Exam: REGULAR RHYTHM, +S1, +S2 - GI/Abdominal Exam GI & Abdominal Exam: Normal Bowel Sounds - Extremities Exam Extremities exam: full ROM, normal capillary refill, normal inspection, pedal pulses present - Back Exam Back exam: NORMAL INSPECTION - Neurological Exam Neurological exam: Alert, CN II-XII Intact, Normal Gait, Oriented x3, Reflexes Normal - Psychiatric Exam Psychiatric exam: Normal Affect, Normal Mood - Skin Skin Exam: Dry, Intact, Normal Color, Warm Discharge Plan - Discharge Medications Prescriptions: Methylprednisolone [Medrol Dose Pack (21 tabs)] 4 mg PO ASDIR #21 mg Ondansetron HCl [Zofran] 4 mg PO Q8 7 Days #21 tablet Pantoprazole [Protonix EC Tab] 40 mg PO ACB 7 Days #7 ect - Follow Up Plan Condition: STABLE Disposition: HOME/ ROUTINE Instructions: Gastritis (DC), Ulcer and Gastritis Diet Additional Instructions: 1. Please follow up with your PMD within 3-4 days of discharge. 2. Please follow up with your Police Stenographer (Dr. Estevez) within 1 week of discharge. 3. Please resume your home medications as prescribed. 4. Please start on these new medications: Zofran 4 mg every 8 hours as needed for a total of 7 days, Protonix 40 mg in the morning daily for a total of 7 days , Medrol dose pack as prescribed. 5. Please return to the ED if your symptoms reoccur. Referrals: John Estevez MD [Staff Provider] - Tejinder Davila DO [Primary Care Provider] - <Riri Barroso - Last Filed: 02/22/18 16:18> Provider - Provider Date of Admission: 02/19/18 17:23 Attending physician: Riri Barroso MD Primary care physician: Tejinder Davila DO Hospital Course - Lab Results Lab Results: Most Recent Lab Values WBC 11.2 10^3/ul (4.5-11.0) H D 02/21/18 06:20 RBC 4.17 10^6/uL (3.5-6.1) 02/21/18 06:20 Hgb 12.2 g/dL (12.0-16.0) 02/21/18 06:20 Hct 37.2 % (36.0-48.0) 02/21/18 06:20 MCV 89.2 fl (80.0-105.0) 02/21/18 06:20 MCH 29.3 pg (25.0-35.0) 02/21/18 06:20 MCHC 32.8 g/dl (31.0-37.0) 02/21/18 06:20 RDW 15.5 % (11.5-14.5) H 02/21/18 06:20 Plt Count 375 10^3/uL (120.0-450.0) 02/21/18 06:20 MPV 9.9 fl (7.0-11.0) 02/21/18 06:20 Gran % 85.2 % (50.0-68.0) H 02/21/18 06:20 Lymph % (Auto) 8.4 % (22.0-35.0) L 02/21/18 06:20 Leon % (Auto) 6.3 % (1.0-6.0) H 02/21/18 06:20 Eos % (Auto) 0.0 % (1.5-5.0) L 02/21/18 06:20 Baso % (Auto) 0.1 % (0.0-3.0) 02/21/18 06:20 Gran # 9.55 (1.4-6.5) H 02/21/18 06:20 Lymph # (Auto) 0.9 (1.2-3.4) L 02/21/18 06:20 Leon # (Auto) 0.7 (0.1-0.6) H 02/21/18 06:20 Eos # (Auto) 0.0 (0.0-0.7) 02/21/18 06:20 Baso # (Auto) 0.01 K/mm3 (0.0-2.0) 02/21/18 06:20 Sodium 140 mmol/L (132-148) 02/21/18 06:20 Potassium 4.9 mmol/L (3.6-5.0) 02/21/18 06:20 Chloride 107 mmol/L (98-107) 02/21/18 06:20 Carbon Dioxide 25 mmol/L (21-33) 02/21/18 06:20 Anion Gap 13 (10-20) 02/21/18 06:20 BUN 10 mg/dL (7-21) 02/21/18 06:20 Creatinine 0.6 mg/dl (0.7-1.2) L 02/21/18 06:20 Est GFR ( Amer) > 60 02/21/18 06:20 Est GFR (Non-Af Amer) > 60 02/21/18 06:20 Random Glucose 115 mg/dL (70-110) H 02/21/18 06:20 Calcium 9.5 mg/dL (8.4-10.5) 02/21/18 06:20 Phosphorus 2.6 mg/dL (2.5-4.5) 02/20/18 06:30 Magnesium 1.9 mg/dL (1.7-2.2) 02/20/18 06:30 Total Bilirubin 0.5 mg/dL (0.2-1.3) 02/21/18 06:20 AST 29 U/L (14-36) 02/21/18 06:20 ALT 20 U/L (7-56) 02/21/18 06:20 Alkaline Phosphatase 48 U/L (38-126) 02/21/18 06:20 Total Protein 7.8 g/dL (5.8-8.3) 02/21/18 06:20 Albumin 4.5 g/dL (3.0-4.8) 02/21/18 06:20 Globulin 3.3 gm/dL 02/21/18 06:20 Albumin/Globulin Ratio 1.3 (1.1-1.8) 02/21/18 06:20 Procalcitonin 0.05 NG/ML (0.19-0.49) L 02/20/18 07:30 Urine Color Light yellow (YELLOW) 02/19/18 16:05 Urine Appearance Clear (CLEAR) 02/19/18 16:05 Urine pH 7.0 (4.7-8.0) 02/19/18 16:05 Ur Specific [place] <= 1.005 (1.005-1.035) 02/19/18 16:05 Urine Protein Negative mg/dL (<30 mg/dL) 02/19/18 16:05 Urine Glucose (UA) Negative mg/dL (NEGATIVE) 02/19/18 16:05 Urine Ketones Negative mg/dL (NEGATIVE) 02/19/18 16:05 Urine Blood Negative (NEGATIVE) 02/19/18 16:05 Urine Nitrate Negative (NEGATIVE) 02/19/18 16:05 Urine Bilirubin Negative (NEGATIVE) 02/19/18 16:05 Urine Urobilinogen 0.2 E.U./dL (<1 E.U./dL) 02/19/18 16:05 Ur Leukocyte Esterase Negative Freda/uL (NEGATIVE) 02/19/18 16:05 Urine HCG, Qual Negative (NEGATIVE) 02/20/18 08:15 Urine Opiates Screen Negative (NEGATIVE) 02/20/18 08:15 Urine Methadone Screen Negative (NEGATIVE) 02/20/18 08:15 Ur Barbiturates Screen Negative (NEGATIVE) 02/20/18 08:15 Ur Phencyclidine Scrn Negative (NEGATIVE) 02/20/18 08:15 Ur Amphetamines Screen Negative (NEGATIVE) 02/20/18 08:15 U Benzodiazepines Scrn Negative (NEGATIVE) 02/20/18 08:15 U Oth Cocaine Metabols Negative (NEGATIVE) 02/20/18 08:15 U Cannabinoids Screen Positive (NEGATIVE) H 02/20/18 08:15 Attending/Attestation - Attestation I have personally seen and examined this patient.: Yes I have fully participated in the care of the patient.: Yes I have reviewed all pertinent clinical information, including history, physical exam and plan: Yes Notes (Text): 02/22/18 16:16 Attending note; Patient seen and examined with resident. Patient is alert and awake. Status post EGD today. EGD showed gastritis. Patient is a 47 year old female with PMH of rheumatoid arthritis, fibromyalgia ,HTN, asthma, Raynaud's syndrome, previous history of pulmonary embolism was admitted for vomiting. Patient states she has experienced vomiting without nausea for the past 2 years on and off. Vomiting resolved. Status post EGD. EGD showed gastritis. Continue Protonix daily. continue zofran prn. GI evaluation appreciated .CT abdomen and pelvis showed moderate constipation . History of marijuana use. History of rheumatoid arthritis; avoid NSAIDs. Continue Protonix. Continue Savella nad xeljanz per oil bay technician. History of asthma; patient will be discharged home with Medrol Dosepak. Upon discharge the patient will follow-up with PMD Dr. Davila.
== END 2018-02-21 14:09 | disposition home or self-care (01) ==
LOC: ED 15:40 → ERH 17:23 → 5RNO 18:41
PROVIDERS: ADMIT Internal Medicine; ATTEND Internal Medicine
DX: E87.6 Hypokalemia (principal); R11.2 Nausea with vomiting, unspecified; E86.0 Dehydration; K29.70 Gastritis, unspecified, without bleeding; G62.9 Polyneuropathy, unspecified; I10 Essential (primary) hypertension; I73.00 Raynaud's syndrome without gangrene; M06.9 Rheumatoid arthritis, unspecified; J45.909 Unspecified asthma, uncomplicated; F12.90 Cannabis use, unspecified, uncomplicated; K59.00 Constipation, unspecified; E78.5 Hyperlipidemia, unspecified; M79.7 Fibromyalgia; Z79.82 Long term (current) use of aspirin; Z86.711 Personal history of pulmonary embolism
CPT/HCPCS: 36415; 43239; 71046; 74176; 80053; 81003; 83735; 84100; 84145; 84703; 85025; 88305; 88342; 93005; 94640; 94760; 96361; 96374; 96375; 96376; 99285; C9113; G0378; G0480; J2405; J2704; J2920; J7030; J7040

== ENCOUNTER 2018-07-02 09:25 | Observation (INO) | payer MEDICARE, OTHER ==
[2018-07-02 09:27] VITALS: BMI 24.1
[2018-07-02] MEDS ORDERED: Sodium Chloride 0.9% 1,000 ML IV STA (09:56)
[2018-07-02] MEDS ORDERED: Albuterol-Ipratrop 3 mg / 0.5 (3 ml) UD IH STA (09:56)
[2018-07-02 10:56] LABS: BASO # 0.01 K/mm3 (0.0-2.0); BASO % 0.2 % (0.0-3.0); HEMOGLOBIN 12.8 g/dL (12.0-16.0); LYMPH # 0.6 (1.2-3.4); LYMPH % 9.4 % (22.0-35.0); MEAN CELL VOLUME 83.3 fl (80.0-105.0); MEAN CORPUSCULAR HEMOGLOBIN 28.6 pg (25.0-35.0); MEAN CORPUSCULAR HGB CONC 34.3 g/dl (31.0-37.0); MEAN PLATELET VOLUME 9.3 fl (7.0-11.0); MONO # 0.8 (0.1-0.6); MONO % 11.8 % (1.0-6.0); RBC 4.48 10^6/uL (3.5-6.1); RED CELL DISTRIBUTION WIDTH 16.6 % (11.5-14.5); WHITE BLOOD COUNT 6.4 10^3/uL (4.5-11.0)
[2018-07-02 11:21] LABS: ALB/GLOB RATIO 1.3 (1.1-1.8); ALBUMIN 4.8 g/dL (3.0-4.8); ALT/SGPT 32 U/L (7-56); AST/SGOT 47 U/L (14-36); BLOOD UREA NITROGEN 12 mg/dL (7-21); CALCIUM 9.2 mg/dL (8.4-10.5); GFR NON-AFRICAN AMERICAN > 60
--- NOTE | 2018-07-02 11:34 | ED PDOC ---
Arrival/HPI - General Chief Complaint: Fever Time Seen by Provider: 07/02/18 09:32 Historian: Patient - History of Present Illness Narrative History of Present Illness (Text): 07/02/18 12:01 48-year-old female presents today with a three-day history of cough nasal congestion and fevers. Patient complaining of generalized weakness. No chest pain or shortness of breath. Patient denies dizziness or weakness. Denies sick contacts. No medications have been taken for pain or fever at home. No abdominal pain. No vomiting or diarrhea. No other complaints Past Medical History - Provider Review Nursing Documentation Reviewed: Yes - Travel History Have you recently traveled outside [place] w/in the past 3 mons?: No - Infectious Disease Hx of Infectious Diseases: None - Tetanus Immunization Tetanus Immunization: Unknown - Reproductive Currently : No - Cardiac Hx Cardiac Disorders: Yes Hx Circulatory Problems: Yes Hx Heart Murmur: Yes Hx Hypertension: Yes Hx Peripheral Vascular Disease: Yes Other/Comment: circulation problems, peripheral neuropathy numbness tingling to hands and feet arms and legs, feels like electricity going tleft thumb - Pulmonary Hx Respiratory Disorders: Yes (pe 11/17/14 right lung) Hx Asthma: Yes Hx Pulmonary Embolism: Yes - Neurological Hx Neurological Disorder: Yes Hx Dizziness: (denies) Other/Comment: peripheral neuropathy in arms and legs - HEENT Hx HEENT Disorder: Yes (sinusitis) - Renal Hx Renal Disorder: No - Endocrine/Metabolic Hx Endocrine Disorders: No - Hematological/Oncological Hx Blood Transfusions: No - Integumentary Hx Dermatological Disorder: Yes (skin problems) - Musculoskeletal/Rheumatological Hx Musculoskeletal Disorders: Yes (rheumatoid arthritis) Hx Rheumatoid Arthritis: Yes - Gastrointestinal Hx Gastrointestinal Disorders: Yes Other/Comment: chronic spontaneous vomiting x 2 yrs on and off - Genitourinary/Gynecological Hx Genitourinary Disorders: Yes Hx Urinary Tract Infection: Yes - Psychiatric Hx Psychophysiologic Disorder: No Hx Substance Use: No - Surgical History Hx Tubal Ligation: Yes - Anesthesia Hx Anesthesia: Yes Hx Anesthesia Reactions: No Hx Malignant Hyperthermia: No - Suicidal Assessment Feels Threatened In Home Enviroment: No Family/Social History - Physician Review Nursing Documentation Reviewed: Yes Family/Social History: Unknown Family HX Smoking Status: Never Smoked Hx Alcohol Use: No Hx Substance Use: No Hx Substance Use Treatment: No Allergies/Home Meds Allergies/Adverse Reactions: Allergies hydrocortisone Allergy (Verified 02/19/18 15:50) RASH latex Allergy (Verified 02/19/18 15:50) SHORTNESS OF BREATH nasal cannula Adverse Reaction (Uncoded 02/19/18 15:50) SHORTNESS OF BREATH Home Medications: Home Meds Medication Instructions Recorded Confirmed Milnacipran HCl [Savella] 50 mg PO BID 06/25/15 07/02/18 Aspirin [Lo-Dose Aspirin EC] 81 mg PO DAILY 02/19/18 07/02/18 Ibuprofen/Famotidine [Duexis 1 tab PO BID 02/19/18 07/02/18 800-26.6 mg Tablet] Montelukast [Singulair] 10 mg PO DAILY 02/19/18 07/02/18 Tofacitinib Citrate [Xeljanz Xr] 11 mg PO DAILY 02/19/18 07/02/18 hydroCHLOROthiazide [Microzide] 50 mg PO DAILY 02/19/18 07/02/18 Methylprednisolone [Medrol Dose 5 mg PO DAILY 07/02/18 07/02/18 Pack (21 tabs)] Review of Systems - Review of Systems Constitutional: Fatigue, Fevers ENT: Sinus Congestion Respiratory: Cough. absent: SOB Cardiovascular: absent: Chest Pain, Palpitations Gastrointestinal: absent: Abdominal Pain, Nausea, Vomiting Skin: absent: Rash, Pruritis Neurological: Headache. absent: Dizziness Psychiatric: absent: Anxiety, Depression Physical Exam Vital Signs Reviewed: Yes Vital Signs Temp Pulse Resp BP Pulse Ox 07/02/18 11:12 101.4 F H 78 18 115/45 L 96 07/02/18 10:12 101.6 F H 07/02/18 09:28 101.6 F H 104 H 18 134/87 97 Temperature: Febrile Blood Pressure: Normal Pulse: Tachycardic Respiratory Rate: Normal Appearance: Positive for: Well-Appearing, Non-Toxic, Comfortable Pain Distress: None Mental Status: Positive for: Alert and Oriented X 3 - Systems Exam Head: Present: Atraumatic Conjunctiva: Present: Normal Ears: Present: Normal, NORMAL TM, Normal Canal Mouth: Present: Moist Mucous Membranes Pharnyx: Present: Normal. No: ERYTHEMA, EXUDATE, TONSILS ENLARGED, Peritonsilar Swelling, Uvular Deviation, Muffled/Hoarse Voice Nose (External): Present: Atraumatic Nose (Internal): Present: Normal Inspection Neck: Present: Normal Range of Motion, Trachea Midline Respiratory/Chest: Present: Good Air Exchange, Wheezes, Rhonchi. No: Clear to Auscultation, Respiratory Distress, Accessory Muscle Use Cardiovascular: Present: Regular Rate and Rhythm Abdomen: No: Tenderness, Distention, Rebound, Guarding Neurological: Present: GCS=15, Speech Normal Skin: Present: Warm, Dry, Normal Color. No: Rashes Psychiatric: Present: Alert, Oriented x 3 Medical Decision Making ED Course and Treatment: 07/02/18 12:22 48yr old female with flu like symptoms x 3 days. cbc; wnl cmp; K: 2.5 cxr: no infiltrate. rapid flu; negative ekg; normal sinus rhythm at 74 bpm with T-wave inversions in the lateral leads pt reassessment; pt feeling better. vitals improved. all results discussed with patient; 07/02/18 12:[address] acevedo. accepts observational status admission to remote tele. trop wnl UA; no leukocytes, + nitrates impression; hypokalemia, fever, cough admit obs status remote tele. Reassessment Condition: Re-examined, Improved - Lab Interpretations Lab Results: Total Bilirubin 0.3 mg/dL (0.2-1.3) 07/02/18 10:45 AST 47 U/L (14-36) H D 07/02/18 10:45 ALT 32 U/L (7-56) 07/02/18 10:45 Alkaline Phosphatase 70 U/L (38-126) 07/02/18 10:45 Total Protein 8.5 g/dL (5.8-8.3) H 07/02/18 10:45 Albumin 4.8 g/dL (3.0-4.8) 07/02/18 10:45 Globulin 3.7 gm/dL 07/02/18 10:45 Albumin/Globulin Ratio 1.3 (1.1-1.8) 07/02/18 10:45 - RAD Interpretation Radiology Orders: 07/02/18 09:55 CHEST TWO VIEWS (PA/LAT) [RAD] Stat - Medication Orders Current Medication Orders: Discontinued Medications Acetaminophen (Tylenol 325mg Tab) 975 mg PO STAT STA Stop: 07/02/18 09:36 Last Admin: 07/02/18 10:12 Dose: 975 mg MAR Pain/Vitals Document 07/02/18 10:12 KV (Rec: 07/02/18 10:14 KV [id number]) Vitals Temperature (97.6 F-99.6 F) 101.6 F Temperature Source Oral Re-Assess: MAR Pain/Vitals Document 07/02/18 11:12 KV (Rec: 07/02/18 11:24 KV [id number]) Vitals Temperature (97.6 F-99.6 F) 101.4 F Temperature Source Oral Albuterol/Ipratropium (Duoneb 3 Mg/0.5 Mg (3 Ml) Ud) 3 ml IH STAT STA Stop: 07/02/18 09:57 Last Admin: 07/02/18 10:12 Dose: 3 ml Sodium Chloride (Sodium Chloride 0.9%) 1,000 mls @ 999 mls/hr IV .Q1H1M STA Stop: 07/02/18 10:56 Last Admin: 07/02/18 10:50 Dose: 999 mls/hr eMAR Start Stop Document 07/02/18 10:50 KV (Rec: 07/02/18 10:50 KV [id number]) Intravenous Solution Start Date 07/02/18 Start Time 10:50 Disposition/Present on Arrival - Present on Arrival Any Indicators Present on Arrival: No History of DVT/PE: No History of Uncontrolled Diabetes: No Urinary Catheter: No History of Decub. Ulcer: No History Surgical Site Infection Following: None - Disposition Have Diagnosis and Disposition been Completed?: Yes Diagnosis: Hypokalemia, Fever, Cough Disposition: HOSPITALIZED Disposition Time: 12:20 Patient Plan: Observation Patient Problems: Current Active Problems Problem Status Onset Cough Acute Fever Acute Hypokalemia Acute Condition: FAIR
[2018-07-02] MEDS ORDERED: Potassium Chloride 20 mEq ER Tab PO STA (12:26)
[2018-07-02] MEDS ORDERED: Potassium Chloride 20 mEq 100 ML IVPB ONE (12:26)
[2018-07-02 13:21] LABS: PH,URINE 6.5 (4.7-8.0); URINE BILIRUBIN NEGATIVE (NEGATIVE); URINE BLOOD NEGATIVE (NEGATIVE); URINE GLUCOSE (UA) NEGATIVE (NEGATIVE); URINE LEUKOCYTE ESTERASE NEGATIVE Leu/uL (NEGATIVE); URINE PROTEIN 100 mg/dL (<30 mg/dL); URINE UROBILINOGEN 0.2 E.U./dL (<1 E.U./dL)
[2018-07-02 13:22] LABS: TROPONIN I < 0.01 ng/mL
[2018-07-02 13:27] LABS: URINE APPEARANCE TURBID (CLEAR); URINE COLOR YELLOW (YELLOW)
[2018-07-02 13:33] LABS: URINE BACTERIA MANY /hpf; URINE WBC 0 - 2 /hpf (0-6)
--- NOTE | 2018-07-02 14:00 | RAD ---
Date of service: 07/02/2018 HISTORY: cough/fever COMPARISON: 02/19/2018 TECHNIQUE: Chest PA and lateral FINDINGS: LUNGS: No active pulmonary disease. PLEURA: No significant pleural effusion identified. No pneumothorax apparent. CARDIOVASCULAR: No aortic atherosclerotic calcification present. Normal cardiac size. No pulmonary vascular congestion. OSSEOUS STRUCTURES: No significant abnormalities. VISUALIZED UPPER ABDOMEN: Normal. OTHER FINDINGS: None. IMPRESSION: No active disease.
[2018-07-02] MEDS ORDERED: Potassium Chloride 40 mEq/30 ml LIQ UD PO STA (14:38)
--- NOTE | 2018-07-02 14:46 | CP.PCM.HP ---
<Raad Mayfield - Last Filed: 07/02/18 14:59> History of Present Illness - History of Present Illness History of Present Illness: Raad Mayfield PGY1, History and Physical for Dr Talia Bates Pt is a 48 yo male with a PMH of RA, fibro, HTN, asthma, OA, raynaud's syndrome, PE who presents to the ED complaining of a 1 week history of 101 fevers along with cough and nasal congestion. Pt complains of generalized weakness. Pt tried to use [facility] plus Cold and Flu but it did not help with her symptoms. Pt states she has been having trouble eating and drinking because everything tastes "nasty". Denies sick contacts. Denies travel. Reports chills and headache. Denies vomiting, but reports nausea. Denies diarrhea/constipation or urinary symptoms. A 12 point ROS was obtained and added to the HPI where appropriate. 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 Home meds: Duexis BID, Prednisone 5mg daily, xelijenz xr 11m, savella BID, HCTZ 25mg, ASA 81mg, Singulair 10mg Allergies: hydrocortisone causes hives PMD: Dr Davila Occupational Therapy Supervisor: Kemar Present on Admission - Present on Admission Any Indicators Present on Admission: No Review of Systems - Review of Systems Review of Systems: a 12 point ROS was obtained and added to the HPI where appropriate Past Patient History - Infectious Disease Hx of Infectious Diseases: None - Tetanus Immunizations Tetanus Immunization: Unknown - Past Medical History & Family History Past Medical History?: Yes - Past Social History Smoking Status: Never Smoked - CARDIAC Hx Cardiac Disorders: Yes Hx Circulatory Problems: Yes Hx Heart Murmur: Yes Hx Hypertension: Yes Hx Peripheral Vascular Disease: Yes Other/Comment: circulation problems, peripheral neuropathy numbness tingling to hands and feet arms and legs, feels like electricity going tleft thumb - PULMONARY Hx Respiratory Disorders: Yes (pe 11/17/14 right lung) Hx Asthma: Yes Hx Pulmonary Embolism: Yes - NEUROLOGICAL Hx Neurological Disorder: Yes Hx Dizziness: (denies) Other/Comment: peripheral neuropathy in arms and legs - HEENT Hx HEENT Problems: Yes (sinusitis) - RENAL Hx Chronic Kidney Disease: No - ENDOCRINE/METABOLIC Hx Endocrine Disorders: No - HEMATOLOGICAL/ONCOLOGICAL Hx Blood Transfusions: No - INTEGUMENTARY Hx Dermatological Problems: Yes (skin problems) - MUSCULOSKELETAL/RHEUMATOLOGICAL Hx Musculoskeletal Disorders: Yes (rheumatoid arthritis) Hx Rheumatoid Arthritis: Yes - GASTROINTESTINAL Hx Gastrointestinal Disorders: Yes Other/Comment: chronic spontaneous vomiting x 2 yrs on and off - GENITOURINARY/GYNECOLOGICAL Hx Genitourinary Disorders: Yes Hx Urinary Tract Infection: Yes - PSYCHIATRIC Hx Psychophysiologic Disorder: No Hx Substance Use: No - SURGICAL HISTORY Hx Tubal Ligation: Yes - ANESTHESIA Hx Anesthesia: Yes Hx Anesthesia Reactions: No Hx Malignant Hyperthermia: No Meds Allergies/Adverse Reactions: Allergies Allergy/AdvReac Type Severity Reaction Status Date / Time hydrocortisone Allergy RASH Verified 02/19/18 15:50 latex Allergy SHORTNESS Verified 02/19/18 15:50 OF BREATH nasal cannula AdvReac SHORTNESS Uncoded 02/19/18 15:50 OF BREATH Physical Exam - Constitutional Appears: No Acute Distress - Head Exam Head Exam: ATRAUMATIC, NORMOCEPHALIC - Eye Exam Eye Exam: EOMI, PERRL - ENT Exam ENT Exam: Mucous Membranes Moist - Neck Exam Neck exam: Positive for: Normal Inspection. Negative for: Tenderness - Respiratory Exam Respiratory Exam: Clear to Auscultation Bilateral, NORMAL BREATHING PATTERN. absent: Accessory Muscle Use, Respiratory Distress - Cardiovascular Exam Cardiovascular Exam: RRR, +S1, +S2. absent: Diastolic murmur, Systolic Murmur - GI/Abdominal Exam GI & Abdominal Exam: Normal Bowel Sounds, Soft. absent: Tenderness - Extremities Exam Extremities exam: Positive for: full ROM, pedal pulses present. Negative for: calf tenderness, pedal edema - Neurological Exam Neurological exam: Alert, Oriented x3 - Psychiatric Exam Psychiatric exam: Normal Affect, Normal Mood - Skin Skin Exam: Dry, Intact, Warm Results - Vital Signs Recent Vital Signs: Last Vital Signs Temp 99.2 F 07/02/18 13:36 Pulse 70 07/02/18 13:36 Resp 18 07/02/18 13:36 BP 104/55 L 07/02/18 13:36 Pulse Ox 96 07/02/18 13:36 - Labs Result Diagrams: 07/02/18 10:45 07/02/18 10:45 Labs: Laboratory Results - last 24 hr 07/02/18 07/02/18 07/02/18 10:45 10:45 10:45 WBC 6.4 RBC 4.48 Hgb 12.8 Hct 37.3 MCV 83.3 D MCH 28.6 MCHC 34.3 RDW 16.6 H Plt Count 214 MPV 9.3 Neut % (Auto) 78.6 H Lymph % (Auto) 9.4 L [place] % (Auto) 11.8 H Eos % (Auto) 0.0 L Baso % (Auto) 0.2 Lymph # (Auto) 0.6 L [place] # (Auto) 0.8 H Eos # (Auto) 0.0 Baso # (Auto) 0.01 Absolute Neuts (auto) 5.02 Sodium 132 Potassium 2.5 L* D Chloride 90 L Carbon Dioxide 32 Anion Gap 13 BUN 12 Creatinine 0.7 Est GFR ( Amer) > 60 Est GFR (Non-Af Amer) > 60 Random Glucose 106 Calcium 9.2 Magnesium Total Bilirubin 0.3 AST 47 H D ALT 32 Alkaline Phosphatase 70 Lactate Dehydrogenase Total Creatine Kinase Troponin I Total Protein 8.5 H Albumin 4.8 Globulin 3.7 Albumin/Globulin Ratio 1.3 Urine Color Urine Appearance Urine pH Ur Specific [place] Urine Protein Urine Glucose (UA) Urine Ketones Urine Blood Urine Nitrate Urine Bilirubin Urine Urobilinogen Ur Leukocyte Esterase Urine RBC Urine WBC Ur Epithelial Cells Urine Bacteria Influenza Typ A,B (EIA) Negative for flu a/b 07/02/18 07/02/18 10:45 13:00 WBC RBC Hgb Hct MCV MCH MCHC RDW Plt Count MPV Neut % (Auto) Lymph % (Auto) [place] % (Auto) Eos % (Auto) Baso % (Auto) Lymph # (Auto) [place] # (Auto) Eos # (Auto) Baso # (Auto) Absolute Neuts (auto) Sodium Potassium Chloride Carbon Dioxide Anion Gap BUN Creatinine Est GFR ( Amer) Est GFR (Non-Af Amer) Random Glucose Calcium Magnesium 1.8 Total Bilirubin AST ALT Alkaline Phosphatase Lactate Dehydrogenase 541 Total Creatine Kinase 110 Troponin I < 0.01 Total Protein Albumin Globulin Albumin/Globulin Ratio Urine Color Yellow Urine Appearance Turbid Urine pH 6.5 Ur Specific [place] 1.025 Urine Protein 100 H Urine Glucose (UA) Negative Urine Ketones >=80 Urine Blood Negative Urine Nitrate Positive H Urine Bilirubin Negative Urine Urobilinogen 0.2 Ur Leukocyte Esterase Negative Urine RBC None Urine WBC 0 - 2 Ur Epithelial Cells 3 - 4 Urine Bacteria Many Influenza Typ A,B (EIA) Assessment & Plan - Assessment and Plan (Free Text) Assessment: Pt is a 48 yo male with a PMH of RA, fibro, HTN, asthma, OA, raynaud's syndrome, PE who presents to the ED complaining of a 1 week history of 101 fevers along with cough and nasal congestion. Plan: Fever, Cough, Body Aches - likely viral etiology - blood cultures follow up - MRSA screen follow up - Urine culture follow up - legionella follow up - procal follow up - tylenol for fever PRN - tamiflu - NS100 - ID consulted Hypokalemia - K 2.5 - replete PRN - monitor BMP - Mg/ Phos follow up - will hold HCTZ at this time, pt is normotensive, advised pt to follow up with her PMD to possible change this medication Asthma - continue home singulair HTN - hold HCTZ, pt is normotensive at this time RA - prednisone 5mg PO Fibromyalgia - continue Savella HLD - pt not on home statin, will hold off on starting at this time Ppx - SCD - protonix Pt seen, examined, assessment and plan discussed with Dr Talia Mayfield PGY1, Internal Medicine Resident - Date & Time Date: 07/02/18 Time: 14:59 <Talia Bates R - Last Filed: 07/02/18 18:33> Results - Vital Signs Recent Vital Signs: Last Vital Signs Temp 99.0 F 07/02/18 18:28 Pulse 72 07/02/18 18:28 Resp 18 07/02/18 18:28 BP 118/67 07/02/18 18:28 Pulse Ox 97 07/02/18 18:28 - Labs Result Diagrams: 07/02/18 10:45 07/02/18 18:00 Labs: Laboratory Results - last 24 hr 07/02/18 07/02/18 07/02/18 10:45 10:45 10:45 WBC 6.4 RBC 4.48 Hgb 12.8 Hct 37.3 MCV 83.3 D MCH 28.6 MCHC 34.3 RDW 16.6 H Plt Count 214 MPV 9.3 Neut % (Auto) 78.6 H Lymph % (Auto) 9.4 L [place] % (Auto) 11.8 H Eos % (Auto) 0.0 L Baso % (Auto) 0.2 Lymph # (Auto) 0.6 L [place] # (Auto) 0.8 H Eos # (Auto) 0.0 Baso # (Auto) 0.01 Absolute Neuts (auto) 5.02 Sodium 132 Potassium 2.5 L* D Chloride 90 L Carbon Dioxide 32 Anion Gap 13 BUN 12 Creatinine 0.7 Est GFR ( Amer) > 60 Est GFR (Non-Af Amer) > 60 Random Glucose 106 Calcium 9.2 Magnesium Total Bilirubin 0.3 AST 47 H D ALT 32 Alkaline Phosphatase 70 Lactate Dehydrogenase Total Creatine Kinase Troponin I Total Protein 8.5 H Albumin 4.8 Globulin 3.7 Albumin/Globulin Ratio 1.3 Urine Color Urine Appearance Urine pH Ur Specific [place] Urine Protein Urine Glucose (UA) Urine Ketones Urine Blood Urine Nitrate Urine Bilirubin Urine Urobilinogen Ur Leukocyte Esterase Urine RBC Urine WBC Ur Epithelial Cells Urine Bacteria Influenza Typ A,B (EIA) Negative for flu a/b 07/02/18 07/02/18 07/02/18 10:45 13:00 18:00 WBC RBC Hgb Hct MCV MCH MCHC RDW Plt Count MPV Neut % (Auto) Lymph % (Auto) [place] % (Auto) Eos % (Auto) Baso % (Auto) Lymph # (Auto) [place] # (Auto) Eos # (Auto) Baso # (Auto) Absolute Neuts (auto) Sodium 136 Potassium 3.0 L Chloride 99 Carbon Dioxide 30 Anion Gap 10 BUN 12 Creatinine 0.7 Est GFR ( Amer) > 60 Est GFR (Non-Af Amer) > 60 Random Glucose 90 Calcium 8.5 Magnesium 1.8 Total Bilirubin AST ALT Alkaline Phosphatase Lactate Dehydrogenase 541 Total Creatine Kinase 110 Troponin I < 0.01 Total Protein Albumin Globulin Albumin/Globulin Ratio Urine Color Yellow Urine Appearance Turbid Urine pH 6.5 Ur Specific [place] 1.025 Urine Protein 100 H Urine Glucose (UA) Negative Urine Ketones >=80 Urine Blood Negative Urine Nitrate Positive H Urine Bilirubin Negative Urine Urobilinogen 0.2 Ur Leukocyte Esterase Negative Urine RBC None Urine WBC 0 - 2 Ur Epithelial Cells 3 - 4 Urine Bacteria Many Influenza Typ A,B (EIA) Attending/Attestation - Attestation I have personally seen and examined this patient.: Yes I have fully participated in the care of the patient.: Yes I have reviewed all pertinent clinical information: Yes Notes (Text): Patient seen and examined by me with resident at 2PM in 07/02/18 in the emergency room. Case including HPI, physical exam, and assessment and plan discussed with resident. Agree with above with following additions/corrections. Patient is a 48-year-old female with past medical history significant for hyperlipidemia, mild intermittent asthma, fibromyalgia, rheumatoid arthritis, essential hypertension, osteoarthritis, and Raynaud's syndrome the presented to the emergency room with fever. Patient states the fevers started on 06/28/2018. She states that she has been taking her temperature at home and her highest temp has been 102 today. Patient states that the only medication she tried at home w as [facility] cold and flu. She did not try any Tylenol. Denies any sick contacts. She states that today is the first day she is having nasal congestion. Patient also has associated chills and headache. Denies body aches. Patient states she has also had a loss of appetite as "I am unable to taste my food and everything tasted bad." Patient came to the emergency room today secondary to still having a fever. Patient denies any chest pain or shortness of breath. No dizziness or lightheadedness. Patient does have some nausea but no vomiting or abdominal pain. No dysuria or burning with urination. Recent urinary frequency. No diarrhea or constipation. No neck or back pain. Patient does not bleed or bruise easily. 12 point review of systems reviewed by me. See above HPI. All other systems nega tive. Family history. Mother is alive and has a history of diverticulitis. Father at the age of 46 from suicide. Physical exam: General: Awake and alert lying in bed in no acute distress HEENT: Normocephalic, atraumatic. Extraocular muscles intact, pupils equal and reactive, no scleral icterus. Oropharynx is pink and moist. No pharyngeal erythema or exudate apreciated. Neck is supple. Positive nasal turbinate edema. Hearing grossly intact. Nose externally unremarkable. Cardiovascular: Regular rhythm. Normal S1 and S2. No murmurs, rubs, or gallops appreciated Pulmonary: Normal respiratory effort. No rhonchi, rales, or wheezing appreciated. Gastrointestinal: Soft, nondistended. Nontender. Positive bowel sounds all 4 quadrants. No guarding. Musculoskeletal: Moves all extremities. No calf tenderness. No edema appreciated Central nervous system: AAOx3, CN 2-12 grossly intact. 5 out of 5 muscle strength all extremities. Dermatologic: Skin warm and dry. Assessment and plan: Patient is a 48-year-old female with past medical history significant for hyperlipidemia, mild intermittent asthma, fibromyalgia, rheumatoid arthritis, essential hypertension, osteoarthritis, and Raynaud's syndrome the presented to the emergency room with fever. 1. Fever. SIRS. Patient has symptoms of the flu, although influenza is negative. She was started on Tamiflu. Likely viral. Follow up pro-calcitonin and blood cultures. Follow-up urine culture. Tylenol as needed for fever. Placed on IV f luids. ID consulted, follow-up recommendations. 2. Severe hypokalemia. Patient given PO and IV potassium. Follow up repeat blood work in evening. Replace as needed. Likely secondary to HCTZ, however, patient does not want to stop this medication. She states she will discuss with her primary care doctor, Dr. Davila. 3. Essential hypertension. Home HCTZ held for now secondary to BP being on lower side and hypokalemia. 4. RA. Continue home prednisone 5mg Daily. Dontiue home Xeljanz 5. Fibromyalgia. Continue home Savella 6. OA. Continue home Duexis 7. Mild intermittent asthma. Not in acute exacerbation. Continue home singulair. Placed on nebulizer treatments as needed. 8. DVT prophylaxis. SCDs and ambulation 9. Patient is a full code. Case was discussed in detail with the patient regarding current diagnosis and treatment plan. All questions answered.
[2018-07-02] MEDS ORDERED: Sodium Chloride 0.9% 100 ML IV SCH (15:00)
[2018-07-02] MEDS: Sodium Chloride 0.9% 1,000 ML IV SCH (15:30)
[2018-07-02] MEDS ORDERED: IBUPROFEN PO SCH ×3 (18:00→19:17)
[2018-07-02] MEDS ORDERED: MILNACIPRAN HCL 50 MG PO SCH ×3 (18:00→19:15)
[2018-07-02] MEDS ORDERED: FAMOTIDINE PO SCH ×3 (18:00→19:17)
[2018-07-02 18:23] LABS: BLOOD UREA NITROGEN 12 mg/dL (7-21); CALCIUM 8.5 mg/dL (8.4-10.5); GFR NON-AFRICAN AMERICAN > 60
[2018-07-02] MEDS: IBUPROFEN PO SCH (21:06)
[2018-07-02] MEDS: MILNACIPRAN HCL 50 MG PO SCH (21:06)
[2018-07-02] MEDS: FAMOTIDINE PO SCH (21:06)
[2018-07-03 04:40] LABS: BASO # 0.01 K/mm3 (0.0-2.0); BASO % 0.2 % (0.0-3.0); EOS % 0.8 % (1.5-5.0); HEMOGLOBIN 11.9 g/dL (12.0-16.0); LYMPH # 1.3 (1.2-3.4); LYMPH % 24.8 % (22.0-35.0); MEAN CELL VOLUME 84.8 fl (80.0-105.0); MEAN CORPUSCULAR HEMOGLOBIN 27.7 pg (25.0-35.0); MEAN CORPUSCULAR HGB CONC 32.7 g/dl (31.0-37.0); MEAN PLATELET VOLUME 9.3 fl (7.0-11.0); MONO # 0.6 (0.1-0.6); MONO % 11.5 % (1.0-6.0); RBC 4.29 10^6/uL (3.5-6.1); RED CELL DISTRIBUTION WIDTH 17.2 % (11.5-14.5); WHITE BLOOD COUNT 5.1 10^3/uL (4.5-11.0)
[2018-07-03] MEDS: Sodium Chloride 0.9% 1,000 ML IV SCH ×2 (04:57→11:02)
[2018-07-03 05:09] LABS: ALB/GLOB RATIO 1.2 (1.1-1.8); ALT/SGPT 34 U/L (7-56); AST/SGOT 41 U/L (14-36); BLOOD UREA NITROGEN 9 mg/dL (7-21); CALCIUM 8.8 mg/dL (8.4-10.5); GFR NON-AFRICAN AMERICAN > 60
[2018-07-03] MEDS ORDERED: Albuterol-Ipratrop 3 mg / 0.5 (3 ml) UD IH PRN (07:10)
[2018-07-03] MEDS: Albuterol-Ipratrop 3 mg / 0.5 (3 ml) UD IH SCH ×3 (07:22→23:30)
[2018-07-03] MEDS ORDERED: Pantoprazole 40 mg EC Tab PO SCH (07:30)
[2018-07-03] MEDS ORDERED: TOFACITINIB CITRATE 11 MG PO SCH (10:00)
[2018-07-03] MEDS ORDERED: TOFACITINIB CITRATE PO SCH (10:00)
--- NOTE | 2018-07-03 10:18 | CP.PCM.CON ---
<Jose Miguel Levy - Last Filed: 07/03/18 13:34> History of Present Illness - History of Present Illness History of Present Illness: ID Consult Note 48 year old female with past medical history of rheumatoid arthritis, fibromyalgia, HTN, asthma, Osteoarthritis, and previous PE presents to the hospital after 1 week of fevers and cough. Patient states she initially developed a fever and then had cough. Patient denies body aches. Patient tried over the counter medication at home, but it did not help. Patient admits to occasional nausea, but denies chest pain, shortness of breath, vomiting, diarrhea, dysuria. Patient admits to having a fever at home along with chills. Patient also admits to decreased oral intake. Medical Hx: As above Sutgical Hx: appendectomy, carpal tunnel surgery, tubal ligation Family Hx: Diveriticulitis Socialx H: Denies alcohol and tobacco. Occasional Marijuana use Medication: Reviewed, as per MAR Allergies: Hydrocortisone, Latex Review of Systems - Review of Systems Review of Systems: 12 point ROS as per HPI, otherwise negative Past Patient History - Infectious Disease Hx of Infectious Diseases: None - Tetanus Immunizations Tetanus Immunization: Unknown - Past Medical History & Family History Past Medical History?: Yes - Past Social History Smoking Status: Never Smoked - CARDIAC Hx Cardiac Disorders: Yes Hx Circulatory Problems: Yes Hx Heart Murmur: Yes Hx Hypertension: Yes Hx Peripheral Vascular Disease: Yes Other/Comment: circulation problems, peripheral neuropathy numbness tingling to hands and feet arms and legs, feels like electricity going tleft thumb - PULMONARY Hx Respiratory Disorders: Yes (pe 11/17/14 right lung) Hx Asthma: Yes Hx Pulmonary Embolism: Yes - NEUROLOGICAL Hx Neurological Disorder: Yes Hx Dizziness: (denies) Other/Comment: peripheral neuropathy in arms and legs - HEENT Hx HEENT Problems: Yes (sinusitis) - RENAL Hx Chronic Kidney Disease: No - ENDOCRINE/METABOLIC Hx Endocrine Disorders: No - HEMATOLOGICAL/ONCOLOGICAL Hx Blood Transfusions: No - INTEGUMENTARY Hx Dermatological Problems: Yes (skin problems) - MUSCULOSKELETAL/RHEUMATOLOGICAL Hx Musculoskeletal Disorders: Yes (rheumatoid arthritis) Hx Rheumatoid Arthritis: Yes - GASTROINTESTINAL Hx Gastrointestinal Disorders: Yes Other/Comment: chronic spontaneous vomiting x 2 yrs on and off - GENITOURINARY/GYNECOLOGICAL Hx Genitourinary Disorders: Yes Hx Urinary Tract Infection: Yes - PSYCHIATRIC Hx Psychophysiologic Disorder: No Hx Substance Use: No - SURGICAL HISTORY Hx Tubal Ligation: Yes - ANESTHESIA Hx Anesthesia: Yes Hx Anesthesia Reactions: No Hx Malignant Hyperthermia: No Meds Allergies/Adverse Reactions: Allergies Allergy/AdvReac Type Severity Reaction Status Date / Time hydrocortisone Allergy RASH Verified 02/19/18 15:50 latex Allergy SHORTNESS Verified 02/19/18 15:50 OF BREATH nasal cannula AdvReac SHORTNESS Uncoded 02/19/18 15:50 OF BREATH - Medications Medications: Current Medications Acetaminophen (Tylenol 325mg Tab) 650 mg PO Q6H PRN PRN Reason: Fever >100.4 F Last Admin: 07/02/18 16:50 Dose: 650 mg Albuterol/Ipratropium (Duoneb 3 Mg/0.5 Mg (3 Ml) Ud) 3 ml IH [id number] [facility] Last Admin: 07/03/18 07:22 Dose: 3 ml Albuterol/Ipratropium (Duoneb 3 Mg/0.5 Mg (3 Ml) Ud) 3 ml IH Q2H PRN PRN Reason: Shortness of Breath Aspirin (Ecotrin) 81 mg PO DAILY [facility] Home Med (Home Med) 1 unit PO BID [facility] Last Admin: 07/02/18 21:06 Dose: 1 unit Home Med (Home Med) 1 unit PO BID [facility] Last Admin: 07/02/18 21:06 Dose: 1 unit Sodium Chloride (Sodium Chloride 0.9%) 1,000 mls @ 75 mls/hr IV .[id number] [facility] Last Admin: 07/03/18 04:57 Dose: 75 mls/hr Montelukast Sodium (Singulair) 10 mg PO DAILY [facility] Non-Formulary Medication (Tofacitinib Citrate [Xeljanz Xr]) 0 mg PO DAILY [facility] Oseltamivir Phosphate (Tamiflu Cap) 75 mg PO BID [facility]; Protocol Stop: 07/07/18 14:24 Last Admin: 07/02/18 18:57 Dose: 75 mg Prednisone (Prednisone Tab) 5 mg PO DAILY [facility] Physical Exam - Constitutional Appears: Non-toxic, No Acute Distress - Head Exam Head Exam: ATRAUMATIC, NORMAL INSPECTION, NORMOCEPHALIC - Eye Exam Eye Exam: EOMI - ENT Exam ENT Exam: Mucous Membranes Moist - Respiratory Exam Respiratory Exam: Decreased Breath Sounds, NORMAL BREATHING PATTERN. absent: Rhonchi, Wheezes - Cardiovascular Exam Cardiovascular Exam: RRR, +S1, +S2 - GI/Abdominal Exam GI & Abdominal Exam: Normal Bowel Sounds, Soft. absent: Tenderness - Extremities Exam Extremities exam: Positive for: normal inspection. Negative for: pedal edema - Neurological Exam Neurological exam: Alert, CN II-XII Intact, Oriented x3 - Psychiatric Exam Psychiatric exam: Normal Affect, Normal Mood - Skin Skin Exam: Intact, Normal Color, Warm Results - Vital Signs Recent Vital Signs: Last Vital Signs Temp 99.0 F 07/02/18 18:28 Pulse 72 07/02/18 18:28 Resp 18 07/02/18 18:28 BP 118/67 07/02/18 18:28 Pulse Ox 97 07/02/18 18:28 - Labs Result Diagrams: 07/03/18 04:25 07/03/18 04:25 Labs: Laboratory Results - last 24 hr 07/02/18 07/02/18 07/02/18 10:45 10:45 10:45 WBC 6.4 RBC 4.48 Hgb 12.8 Hct 37.3 MCV 83.3 D MCH 28.6 MCHC 34.3 RDW 16.6 H Plt Count 214 MPV 9.3 Neut % (Auto) 78.6 H Lymph % (Auto) 9.4 L Gentry % (Auto) 11.8 H Eos % (Auto) 0.0 L Baso % (Auto) 0.2 Lymph # (Auto) 0.6 L Gentry # (Auto) 0.8 H Eos # (Auto) 0.0 Baso # (Auto) 0.01 Absolute Neuts (auto) 5.02 Sodium 132 Potassium 2.5 L* D Chloride 90 L Carbon Dioxide 32 Anion Gap 13 BUN 12 Creatinine 0.7 Est GFR ( Amer) > 60 Est GFR (Non-Af Amer) > 60 Random Glucose 106 Calcium 9.2 Phosphorus Magnesium Total Bilirubin 0.3 AST 47 H D ALT 32 Alkaline Phosphatase 70 Lactate Dehydrogenase Total Creatine Kinase Troponin I Total Protein 8.5 H Albumin 4.8 Globulin 3.7 Albumin/Globulin Ratio 1.3 Procalcitonin Urine Color Urine Appearance Urine pH Ur Specific [place] Urine Protein Urine Glucose (UA) Urine Ketones Urine Blood Urine Nitrate Urine Bilirubin Urine Urobilinogen Ur Leukocyte Esterase Urine RBC Urine WBC Ur Epithelial Cells Urine Bacteria Influenza Typ A,B (EIA) Negative for flu a/b Ur L.pneumophila Ag 07/02/18 07/02/18 07/02/18 10:45 13:00 16:00 WBC RBC Hgb Hct MCV MCH MCHC RDW Plt Count MPV Neut % (Auto) Lymph % (Auto) Gentry % (Auto) Eos % (Auto) Baso % (Auto) Lymph # (Auto) Gentry # (Auto) Eos # (Auto) Baso # (Auto) Absolute Neuts (auto) Sodium Potassium Chloride Carbon Dioxide Anion Gap BUN Creatinine Est GFR ( Amer) Est GFR (Non-Af Amer) Random Glucose Calcium Phosphorus Magnesium 1.8 Total Bilirubin AST ALT Alkaline Phosphatase Lactate Dehydrogenase 541 Total Creatine Kinase 110 Troponin I < 0.01 Total Protein Albumin Globulin Albumin/Globulin Ratio Procalcitonin Urine Color Yellow Urine Appearance Turbid Urine pH 6.5 Ur Specific [place] 1.025 Urine Protein 100 H Urine Glucose (UA) Negative Urine Ketones >=80 Urine Blood Negative Urine Nitrate Positive H Urine Bilirubin Negative Urine Urobilinogen 0.2 Ur Leukocyte Esterase Negative Urine RBC None Urine WBC 0 - 2 Ur Epithelial Cells 3 - 4 Urine Bacteria Many Influenza Typ A,B (EIA) Ur L.pneumophila Ag Negative 07/02/18 07/02/18 07/03/18 18:00 18:00 04:25 WBC 5.1 D RBC 4.29 Hgb 11.9 L Hct 36.4 MCV 84.8 MCH 27.7 MCHC 32.7 RDW 17.2 H Plt Count 180 MPV 9.3 Neut % (Auto) 62.7 Lymph % (Auto) 24.8 Gentry % (Auto) 11.5 H Eos % (Auto) 0.8 L Baso % (Auto) 0.2 Lymph # (Auto) 1.3 Gentry # (Auto) 0.6 Eos # (Auto) 0.0 Baso # (Auto) 0.01 Absolute Neuts (auto) 3.22 Sodium 136 Potassium 3.0 L Chloride 99 Carbon Dioxide 30 Anion Gap 10 BUN 12 Creatinine 0.7 Est GFR ( Amer) > 60 Est GFR (Non-Af Amer) > 60 Random Glucose 90 Calcium 8.5 Phosphorus Magnesium Total Bilirubin AST ALT Alkaline Phosphatase Lactate Dehydrogenase Total Creatine Kinase Troponin I Total Protein Albumin Globulin Albumin/Globulin Ratio Procalcitonin < 0.05 L Urine Color Urine Appearance Urine pH Ur Specific [place] Urine Protein Urine Glucose (UA) Urine Ketones Urine Blood Urine Nitrate Urine Bilirubin Urine Urobilinogen Ur Leukocyte Esterase Urine RBC Urine WBC Ur Epithelial Cells Urine Bacteria Influenza Typ A,B (EIA) Ur L.pneumophila Ag 07/03/18 04:25 WBC RBC Hgb Hct MCV MCH MCHC RDW Plt Count MPV Neut % (Auto) Lymph % (Auto) Gentry % (Auto) Eos % (Auto) Baso % (Auto) Lymph # (Auto) Gentry # (Auto) Eos # (Auto) Baso # (Auto) Absolute Neuts (auto) Sodium 137 Potassium 3.8 Chloride 103 Carbon Dioxide 31 Anion Gap 8 L BUN 9 Creatinine 0.7 Est GFR ( Amer) > 60 Est GFR (Non-Af Amer) > 60 Random Glucose 84 Calcium 8.8 Phosphorus 2.8 Magnesium 2.2 Total Bilirubin 0.2 AST 41 H ALT 34 Alkaline Phosphatase 53 Lactate Dehydrogenase Total Creatine Kinase Troponin I Total Protein 7.3 Albumin 4.0 Globulin 3.3 Albumin/Globulin Ratio 1.2 Procalcitonin Urine Color Urine Appearance Urine pH Ur Specific [place] Urine Protein Urine Glucose (UA) Urine Ketones Urine Blood Urine Nitrate Urine Bilirubin Urine Urobilinogen Ur Leukocyte Esterase Urine RBC Urine WBC Ur Epithelial Cells Urine Bacteria Influenza Typ A,B (EIA) Ur L.pneumophila Ag Assessment & Plan - Assessment and Plan (Free Text) Plan: Viral URI Possible Flu Hx of rheumatoid arthritis Hx of Fibromyalgia Hx of HTN Hx of asthma Hx of osteoarthritis Hx of PE Plan Flu negative Chest x-ray reviewed, no acute disease Patient will be placed on Tamiflu to cover for flu Supportive treatment Procal and Legionella negative Follow up MRSA screen Follow up blood and urine cultures Monitor patient closely [facility] PGY-3 <Parker Sims - Last Filed: 07/03/18 14:43> Meds - Medications Medications: Current Medications Acetaminophen (Tylenol 325mg Tab) 650 mg PO Q6H PRN PRN Reason: Fever >100.4 F Last Admin: 07/02/18 16:50 Dose: 650 mg Albuterol/Ipratropium (Duoneb 3 Mg/0.5 Mg (3 Ml) Ud) 3 ml IH [id number] Last Admin: 07/03/18 07:22 Dose: 3 ml Albuterol/Ipratropium (Duoneb 3 Mg/0.5 Mg (3 Ml) Ud) 3 ml IH Q2H PRN PRN Reason: Shortness of Breath Aspirin (Ecotrin) 81 mg PO DAILY [facility] Last Admin: 07/03/18 11:02 Dose: 81 mg Guaifenesin (Mucinex La) 600 mg PO BID [facility] Home Med (Home Med) 1 unit PO BID [facility] Last Admin: 07/03/18 11:02 Dose: 1 unit Home Med (Home Med) 1 unit PO BID [facility] Last Admin: 07/03/18 11:02 Dose: 1 unit Sodium Chloride (Sodium Chloride 0.9%) 1,000 mls @ 75 mls/hr IV .[id number] [facility] Last Admin: 07/03/18 11:02 Dose: 75 mls/hr Montelukast Sodium (Singulair) 10 mg PO DAILY [facility] Last Admin: 07/03/18 11:02 Dose: 10 mg Non-Formulary Medication (Tofacitinib Citrate [Xeljanz Xr]) 0 mg PO DAILY [facility] Last Admin: 07/03/18 11:03 Dose: 11 mg Oseltamivir Phosphate (Tamiflu Cap) 75 mg PO BID [facility]; Protocol Stop: 07/07/18 14:24 Last Admin: 07/03/18 11:02 Dose: 75 mg Prednisone (Prednisone Tab) 5 mg PO DAILY [facility] Last Admin: 07/03/18 11:02 Dose: 5 mg Results - Vital Signs Recent Vital Signs: Last Vital Signs Temp 98.9 F 07/03/18 08:00 Pulse 72 07/03/18 13:10 Resp 18 07/03/18 13:10 BP 132/80 07/03/18 08:00 Pulse Ox 97 07/02/18 18:28 - Labs Result Diagrams: 07/03/18 04:25 07/03/18 04:25 Labs: Laboratory Results - last 24 hr 07/02/18 07/02/18 07/02/18 16:00 18:00 18:00 WBC RBC Hgb Hct MCV MCH MCHC RDW Plt Count MPV Neut % (Auto) Lymph % (Auto) Gentry % (Auto) Eos % (Auto) Baso % (Auto) Lymph # (Auto) Gentry # (Auto) Eos # (Auto) Baso # (Auto) Absolute Neuts (auto) Sodium 136 Potassium 3.0 L Chloride 99 Carbon Dioxide 30 Anion Gap 10 BUN 12 Creatinine 0.7 Est GFR ( Amer) > 60 Est GFR (Non-Af Amer) > 60 Random Glucose 90 Calcium 8.5 Phosphorus Magnesium Total Bilirubin AST ALT Alkaline Phosphatase Total Protein Albumin Globulin Albumin/Globulin Ratio Procalcitonin < 0.05 L Ur L.pneumophila Ag Negative 07/03/18 07/03/18 04:25 04:25 WBC 5.1 D RBC 4.29 Hgb 11.9 L Hct 36.4 MCV 84.8 MCH 27.7 MCHC 32.7 RDW 17.2 H Plt Count 180 MPV 9.3 Neut % (Auto) 62.7 Lymph % (Auto) 24.8 Gentry % (Auto) 11.5 H Eos % (Auto) 0.8 L Baso % (Auto) 0.2 Lymph # (Auto) 1.3 Gentry # (Auto) 0.6 Eos # (Auto) 0.0 Baso # (Auto) 0.01 Absolute Neuts (auto) 3.22 Sodium 137 Potassium 3.8 Chloride 103 Carbon Dioxide 31 Anion Gap 8 L BUN 9 Creatinine 0.7 Est GFR ( Amer) > 60 Est GFR (Non-Af Amer) > 60 Random Glucose 84 Calcium 8.8 Phosphorus 2.8 Magnesium 2.2 Total Bilirubin 0.2 AST 41 H ALT 34 Alkaline Phosphatase 53 Total Protein 7.3 Albumin 4.0 Globulin 3.3 Albumin/Globulin Ratio 1.2 Procalcitonin Ur L.pneumophila Ag Assessment & Plan - Assessment and Plan (Free Text) Plan: Infectious diseases Attending Physician Attestation Patient seen and examined, discussed with certified court/medical interpreter. I have reviewed the patient's history of present illness, past medical, social, personal and family histories, pertinent physical exam findings, course so far in this hospital admission, pertinent laboratory and imaging results. I agree with the above findings, assessment and plan. In addition, patient with probable systemic viral illness with Influenza, will start Tamiflu and monitor clinical response. Reviewed CXR which did not show pneumonia. Will follow up cultures.
[2018-07-03] MEDS: MILNACIPRAN HCL 50 MG PO SCH ×2 (11:02→17:56)
[2018-07-03] MEDS: IBUPROFEN PO SCH ×2 (11:02→17:56)
[2018-07-03] MEDS: FAMOTIDINE PO SCH ×2 (11:02→17:56)
--- NOTE | 2018-07-03 12:42 | CARD ---
APPROVED REPORT Date of service: 07/02/2018 EKG Measurement Heart [id number] <Conclusion> Poor data quality, interpretation may be adversely affected Normal sinus rhythm T wave abnormality, consider inferior ischemia T wave abnormality, consider anterolateral ischemia Abnormal ECG
[2018-07-03 13:30] VITALS: RESP 18
[2018-07-03] MEDS ORDERED: Pneumococcal 23-Valent Vaccine IM ONE (13:30)
[2018-07-03] MEDS ORDERED: Influenza Vaccine 60 mcg/0.5 mL SYR (4YR UP) IM ONE (13:30)
--- NOTE | 2018-07-03 14:07 | CP.PCM.PN ---
<Raad Mayfield - Last Filed: 07/03/18 14:19> Subjective - Date & Time of Evaluation Date of Evaluation: 07/03/18 Time of Evaluation: 06:20 - Subjective Subjective: Pt seen and examined. Pt reports wheezing but denies chest pain or SOB. Per nursing, pt reported chest tightness and requested nebulizer, pt tolerated breakfast. Objective - Vital Signs/Intake and Output Vital Signs (last 24 hours): Temp Pulse Resp BP Pulse Ox 98.9 F 72 18 132/80 97 07/03/18 08:00 07/03/18 13:10 07/03/18 13:10 07/03/18 08:00 07/02/18 18:28 - Medications Medications: Current Medications Acetaminophen (Tylenol 325mg Tab) 650 mg PO Q6H PRN PRN Reason: Fever >100.4 F Last Admin: 07/02/18 16:50 Dose: 650 mg Albuterol/Ipratropium (Duoneb 3 Mg/0.5 Mg (3 Ml) Ud) 3 ml IH [id number] [facility] Last Admin: 07/03/18 07:22 Dose: 3 ml Albuterol/Ipratropium (Duoneb 3 Mg/0.5 Mg (3 Ml) Ud) 3 ml IH Q2H PRN PRN Reason: Shortness of Breath Aspirin (Ecotrin) 81 mg PO DAILY [facility] Last Admin: 07/03/18 11:02 Dose: 81 mg Guaifenesin (Mucinex La) 600 mg PO BID [facility] Home Med (Home Med) 1 unit PO BID [facility] Last Admin: 07/03/18 11:02 Dose: 1 unit Home Med (Home Med) 1 unit PO BID [facility] Last Admin: 07/03/18 11:02 Dose: 1 unit Sodium Chloride (Sodium Chloride 0.9%) 1,000 mls @ 75 mls/hr IV .[id number] [facility] Last Admin: 07/03/18 11:02 Dose: 75 mls/hr Montelukast Sodium (Singulair) 10 mg PO DAILY [facility] Last Admin: 07/03/18 11:02 Dose: 10 mg Non-Formulary Medication (Tofacitinib Citrate [Xeljanz Xr]) 0 mg PO DAILY [facility] Last Admin: 07/03/18 11:03 Dose: 11 mg Oseltamivir Phosphate (Tamiflu Cap) 75 mg PO BID [facility]; Protocol Stop: 07/07/18 14:24 Last Admin: 07/03/18 11:02 Dose: 75 mg Prednisone (Prednisone Tab) 5 mg PO DAILY [facility] Last Admin: 07/03/18 11:02 Dose: 5 mg - Labs Labs: 07/03/18 04:25 07/03/18 04:25 - Constitutional Appears: No Acute Distress - Head Exam Head Exam: ATRAUMATIC, NORMOCEPHALIC - Eye Exam Eye Exam: EOMI - ENT Exam ENT Exam: Mucous Membranes Moist - Neck Exam Neck Exam: Full ROM - Respiratory Exam Respiratory Exam: Wheezes, NORMAL BREATHING PATTERN. absent: Accessory Muscle Use - Cardiovascular Exam Cardiovascular Exam: RRR, +S1, +S2. absent: Diastolic murmur, Murmur - GI/Abdominal Exam GI & Abdominal Exam: Soft, Normal Bowel Sounds. absent: Tenderness - Extremities Exam Extremities Exam: Full ROM. absent: Pedal Edema - Neurological Exam Neurological Exam: Alert, Awake, Oriented x3 - Psychiatric Exam Psychiatric exam: Normal Affect, Normal Mood - Skin Skin Exam: Dry, Intact, Warm Assessment and Plan - Assessment and Plan (Free Text) Assessment: Pt is a 48 yo male with a PMH of RA, fibro, HTN, asthma, OA, raynaud's syndrome, PE who presents to the ED complaining of a 1 week history of 101 fevers along with cough and nasal congestion. Plan: Fever, Cough, Body Aches - likely viral etiology - Urine culture GNR - legionella negative - procal negative - blood cultures, MRSA screen follow up - tylenol for fever PRN - tamiflu - NS100 - start mucinex - ID consulted, supportive treatment, monitor pt closely Hypokalemia - K 3.8, Mg 2.2, Phos 2.8 - replete PRN - will hold HCTZ at this time, pt is normotensive, advised pt to follow up with her PMD to possible change this medication Asthma - continue home singulair Fibromyalgia - continue Savella HLD - pt not on home statin - will hold off on starting at this time HTN - hold HCTZ, pt is normotensive at this time RA - prednisone 5mg PO Ppx - SCD - protonix Pt seen, examined, assessment and plan discussed with Dr Talia Mayfield PGY1, Internal Medicine Resident <Talia Bates R - Last Filed: 07/04/18 17:40> Objective - Vital Signs/Intake and Output Vital Signs (last 24 hours): Temp Pulse Resp BP Pulse Ox 98.4 F 72 18 118/80 99 07/04/18 14:00 07/04/18 14:00 07/04/18 14:00 07/04/18 14:00 07/04/18 14:00 Intake and Output: 07/04/18 07/04/18 06:59 18:59 Intake Total 180 1040 Balance 180 1040 - Labs Labs: 07/04/18 06:30 07/04/18 06:30 Attending/Attestation - Attestation I have personally seen and examined this patient.: Yes I have fully participated in the care of the patient.: Yes I have reviewed all pertinent clinical information, including history, physical exam and plan: Yes Notes (Text): Patient seen and examined by me with resident at 9:30AM in 07/03/18. Case including HPI, physical exam, and assessment and plan discussed with resident. Agree with above with following additions/corrections. Patient is a 48-year-old female with past medical history significant for hyperlipidemia, mild intermittent asthma, fibromyalgia, rheumatoid arthritis, essential hypertension, osteoarthritis, and Raynaud's syndrome the presented to the emergency room with fever. Patient states that she is feeling better. However, she states, now she has a cough and had some shortness of breath earlier. Nebulizer treatment helped. Patient denies any fevers or chills today. No headaches or dizziness. No chest pain or palpitation. No nausea, vomiting, or abdominal pain. No diarrhea or constipation. No dysuria. However, patient states her urine smells "foul." Physical exam: General: Awake and alert lying in bed in no acute distress HEENT: Normocephalic, atraumatic. Extraocular muscles intact, pupils equal and reactive, no scleral icterus. Oropharynx is pink and moist. No pharyngeal erythema or exudate apreciated. Neck is supple. Positive nasal turbinate edema. Cardiovascular: Regular rhythm. Normal S1 and S2. No murmurs, rubs, or gallops appreciated Pulmonary: Normal respiratory effort. No rhonchi, rales, or wheezing appreciated. Gastrointestinal: Soft, nondistended. Nontender. Positive bowel sounds all 4 quadrants. No guarding. Musculoskeletal: Moves all extremities. No calf tenderness. No edema appreciated Central nervous system: AAOx3, CN 2-12 grossly intact. 5 out of 5 muscle strength all extremities. Dermatologic: Skin warm and dry. Assessment and plan: Patient is a 48-year-old female with past medical history significant for hyperlipidemia, mild intermittent asthma, fibromyalgia, rheumatoid arthritis, essential hypertension, osteoarthritis, and Raynaud's syndrome the presented to the emergency room with fever. 1. Fever. SIRS. Likely viral. Improved. Fevers resolved. Continue Tamiflu. ID following, recommendations appreciated. Pro-calcitonin <0.05. Blood cultures negative for 24 hours. Pending urine culture. Continue Tylenol as needed for fever. Continue IV fluids. Mucinex added. 2. Severe hypokalemia. Resolved. Continue to monitor. 3. Essential hypertension. Home HCTZ held for now secondary to BP being on lower side and hypokalemia. 4. RA. Continue home prednisone 5mg Daily. Contiue home Xeljanz 5. Fibromyalgia. Continue home Savella 6. OA. Continue home Duexis 7. Mild intermittent asthma. Not in acute exacerbation. Continue home singulair. Continue nebulizer treatments as needed. 8. DVT prophylaxis. SCDs and ambulation 9. Patient is a full code. Case was discussed in detail with the patient regarding current diagnosis and treatment plan. All questions answered.
[2018-07-03] MEDS: guaiFENesin 600 mg ER Tab PO SCH (17:55)
[2018-07-04] MEDS: Albuterol-Ipratrop 3 mg / 0.5 (3 ml) UD IH SCH ×4 (04:05→15:43)
[2018-07-04 07:28] LABS: ALB/GLOB RATIO 1.3 (1.1-1.8); ALBUMIN 3.7 g/dL (3.0-4.8); ALT/SGPT 27 U/L (7-56); AST/SGOT 38 U/L (14-36); BLOOD UREA NITROGEN 9 mg/dL (7-21); CALCIUM 8.5 mg/dL (8.4-10.5); GFR NON-AFRICAN AMERICAN > 60
[2018-07-04 07:54] LABS: BASO # 0.02 K/mm3 (0.0-2.0); BASO % 0.4 % (0.0-3.0); EOS # 0.1 (0.0-0.7); EOS % 1.9 % (1.5-5.0); HEMOGLOBIN 10.4 g/dL (12.0-16.0); LYMPH # 1.6 (1.2-3.4); LYMPH % 33.4 % (22.0-35.0); MEAN CELL VOLUME 84.9 fl (80.0-105.0); MEAN PLATELET VOLUME 9.5 fl (7.0-11.0); MONO # 0.5 (0.1-0.6); MONO % 10.1 % (1.0-6.0); RBC 3.71 10^6/uL (3.5-6.1); RED CELL DISTRIBUTION WIDTH 17.1 % (11.5-14.5); WHITE BLOOD COUNT 4.9 10^3/uL (4.5-11.0)
[2018-07-04 09:16] VITALS: O2SAT 99
[2018-07-04] MEDS ORDERED: Potassium Chloride 40 mEq/30 ml LIQ UD PO STA (09:44)
[2018-07-04] MEDS: guaiFENesin 600 mg ER Tab PO SCH (09:55)
[2018-07-04] MEDS: IBUPROFEN PO SCH (09:56)
[2018-07-04] MEDS: FAMOTIDINE PO SCH (09:56)
[2018-07-04] MEDS: MILNACIPRAN HCL 50 MG PO SCH (09:56)
--- NOTE | 2018-07-04 12:49 | CP.PCM.PN ---
<Jose Miguel Levy - Last Filed: 07/04/18 12:47> Subjective - Date & Time of Evaluation Date of Evaluation: 07/04/18 Time of Evaluation: 09:45 - Subjective Subjective: ID Progress Note Patient seen and examined. Patient states she feels better. Still complains of cough. No fevers. Objective - Vital Signs/Intake and Output Vital Signs (last 24 hours): Temp Pulse Resp BP Pulse Ox 98.2 F 78 18 111/71 99 07/04/18 06:00 07/04/18 06:00 07/04/18 06:00 07/04/18 06:00 07/04/18 06:00 Intake and Output: 07/04/18 07/04/18 06:59 18:59 Intake Total 180 Balance 180 - Medications Medications: Current Medications Acetaminophen (Tylenol 325mg Tab) 650 mg PO Q6H PRN PRN Reason: Fever >100.4 F Last Admin: 07/02/18 16:50 Dose: 650 mg Albuterol/Ipratropium (Duoneb 3 Mg/0.5 Mg (3 Ml) Ud) 3 ml IH [id number] [facility] Last Admin: 07/04/18 11:31 Dose: 3 ml Albuterol/Ipratropium (Duoneb 3 Mg/0.5 Mg (3 Ml) Ud) 3 ml IH Q2H PRN PRN Reason: Shortness of Breath Aspirin (Ecotrin) 81 mg PO DAILY [facility] Last Admin: 07/04/18 09:55 Dose: 81 mg Guaifenesin (Mucinex La) 600 mg PO BID [facility] Last Admin: 07/04/18 09:55 Dose: 600 mg Home Med (Home Med) 1 unit PO BID [facility] Last Admin: 07/04/18 09:56 Dose: 1 unit Home Med (Home Med) 1 unit PO BID [facility] Last Admin: 07/04/18 09:56 Dose: 1 unit Sodium Chloride (Sodium Chloride 0.9%) 1,000 mls @ 75 mls/hr IV .[id number] [facility] Last Admin: 07/03/18 11:02 Dose: 75 mls/hr Montelukast Sodium (Singulair) 10 mg PO DAILY [facility] Last Admin: 07/04/18 09:55 Dose: 10 mg Non-Formulary Medication (Tofacitinib Citrate [Xeljanz Xr]) 0 mg PO DAILY [facility] Last Admin: 07/03/18 11:03 Dose: 11 mg Oseltamivir Phosphate (Tamiflu Cap) 75 mg PO BID [facility]; Protocol Stop: 07/07/18 14:24 Last Admin: 07/04/18 09:55 Dose: 75 mg Prednisone (Prednisone Tab) 5 mg PO DAILY [facility] Last Admin: 07/04/18 09:55 Dose: 5 mg - Labs Labs: 07/04/18 06:30 07/04/18 06:30 - Constitutional Appears: Non-toxic, No Acute Distress - Head Exam Head Exam: ATRAUMATIC, NORMAL INSPECTION, NORMOCEPHALIC - Respiratory Exam Respiratory Exam: Decreased Breath Sounds, NORMAL BREATHING PATTERN - Cardiovascular Exam Cardiovascular Exam: RRR, +S1, +S2 - GI/Abdominal Exam GI & Abdominal Exam: Soft, Normal Bowel Sounds. absent: Tenderness - Extremities Exam Extremities Exam: Normal Inspection. absent: Pedal Edema - Neurological Exam Neurological Exam: Alert, Awake, Oriented x3 - Psychiatric Exam Psychiatric exam: Normal Affect, Normal Mood - Skin Skin Exam: Dry, Intact, Warm Assessment and Plan - Assessment and Plan (Free Text) Plan: Viral URI Probable Flu E. coli UTI Hx of rheumatoid arthritis Hx of Fibromyalgia Hx of HTN Hx of asthma Hx of osteoarthritis Hx of PE Plan Continue Ciprofloxacin for 5 days for UTI Finish course of Tamiflu for Flu Supportive treatment Procal and Legionella negative MRSA screen negative Blood culture negative Monitor patient closely Cam, PGY-3 <Parker Sims - Last Filed: 07/04/18 15:07> Objective - Vital Signs/Intake and Output Vital Signs (last 24 hours): Temp Pulse Resp BP Pulse Ox 98.2 F 78 18 111/71 99 07/04/18 06:00 07/04/18 06:00 07/04/18 06:00 07/04/18 06:00 07/04/18 06:00 Intake and Output: 07/04/18 07/04/18 06:59 18:59 Intake Total 180 Balance 180 - Medications Medications: Current Medications Acetaminophen (Tylenol 325mg Tab) 650 mg PO Q6H PRN PRN Reason: Fever >100.4 F Last Admin: 07/02/18 16:50 Dose: 650 mg Albuterol/Ipratropium (Duoneb 3 Mg/0.5 Mg (3 Ml) Ud) 3 ml IH [id number] [facility] Last Admin: 07/04/18 11:31 Dose: 3 ml Albuterol/Ipratropium (Duoneb 3 Mg/0.5 Mg (3 Ml) Ud) 3 ml IH Q2H PRN PRN Reason: Shortness of Breath Aspirin (Ecotrin) 81 mg PO DAILY [facility] Last Admin: 07/04/18 09:55 Dose: 81 mg Guaifenesin (Mucinex La) 600 mg PO BID [facility] Last Admin: 07/04/18 09:55 Dose: 600 mg Home Med (Home Med) 1 unit PO BID [facility] Last Admin: 07/04/18 09:56 Dose: 1 unit Home Med (Home Med) 1 unit PO BID [facility] Last Admin: 07/04/18 09:56 Dose: 1 unit Sodium Chloride (Sodium Chloride 0.9%) 1,000 mls @ 75 mls/hr IV .[id number] [facility] Last Admin: 07/03/18 11:02 Dose: 75 mls/hr Montelukast Sodium (Singulair) 10 mg PO DAILY [facility] Last Admin: 07/04/18 09:55 Dose: 10 mg Non-Formulary Medication (Tofacitinib Citrate [Xeljanz Xr]) 0 mg PO DAILY [facility] Last Admin: 07/03/18 11:03 Dose: 11 mg Oseltamivir Phosphate (Tamiflu Cap) 75 mg PO BID [facility]; Protocol Stop: 07/07/18 14:24 Last Admin: 07/04/18 09:55 Dose: 75 mg Prednisone (Prednisone Tab) 5 mg PO DAILY [facility] Last Admin: 07/04/18 09:55 Dose: 5 mg - Labs Labs: 07/04/18 06:30 07/04/18 06:30 Assessment and Plan - Assessment and Plan (Free Text) Plan: Infectious diseases Attending Physician Attestation Patient seen and examined, discussed with medical recruiter. I have reviewed the patient's history of present illness, past medical, social, personal and family histories, pertinent physical exam findings, course so far in this hospital admission, pertinent laboratory and imaging results. I agree with the above findings, assessment and plan. In addition, patient with probable viral upper respiratory tract infection - will complete 5 day course of Tamiflu. Patient with UTI with whitley-sensitive E. coli - can finish a 3-5 day course of Ciprofloxacin. Discussed with Dr. Azucena Bates.
--- NOTE | 2018-07-04 15:01 | CP.PCM.DIS ---
<Raad Mayfield - Last Filed: 07/04/18 15:04> Provider - Provider Date of Admission: 07/02/18 13:00 Attending physician: Talia Bates DO Consults: 07/02/18 14:21 Physician Consult Routine Comment: Consulting Provider: Parker Sims Consulting Physician: Parker Sims Reason for Consult: fever Time Spent in preparation of Discharge (in minutes): 40 Diagnosis - Discharge Diagnosis (1) Cough Status: Acute Priority: High (2) Asthma Status: Acute Priority: High (3) Fibromyalgia Status: Chronic Priority: Medium (4) Fibromyalgia Status: Chronic Priority: Medium (5) HLD (hyperlipidemia) Status: Chronic (6) HTN (hypertension) Status: Chronic Priority: High (7) Fever Status: Acute (8) Hypokalemia Status: Acute Priority: High Hospital Course - Lab Results Lab Results: Micro Results 07/02/18 13:00 Urine Random Urine Culture - Final Escherichia Coli 07/02/18 18:30 Naris MRSA Culture (Admit) - Final MRSA NOT DETECTED 07/02/18 16:00 Blood Blood Culture - Preliminary NO GROWTH AFTER 24 HOURS Most Recent Lab Values WBC 4.9 10^3/uL (4.5-11.0) 07/04/18 06:30 RBC 3.71 10^6/uL (3.5-6.1) 07/04/18 06:30 Hgb 10.4 g/dL (12.0-16.0) L 07/04/18 06:30 Hct 31.5 % (36.0-48.0) L 07/04/18 06:30 MCV 84.9 fl (80.0-105.0) 07/04/18 06:30 MCH 28.0 pg (25.0-35.0) 07/04/18 06:30 MCHC 33.0 g/dl (31.0-37.0) 07/04/18 06:30 RDW 17.1 % (11.5-14.5) H 07/04/18 06:30 Plt Count 166 10^3/uL (120.0-450.0) 07/04/18 06:30 MPV 9.5 fl (7.0-11.0) 07/04/18 06:30 Neut % (Auto) 54.2 % (50.0-68.0) 07/04/18 06:30 Lymph % (Auto) 33.4 % (22.0-35.0) 07/04/18 06:30 [place] % (Auto) 10.1 % (1.0-6.0) H 07/04/18 06:30 Eos % (Auto) 1.9 % (1.5-5.0) 07/04/18 06:30 Baso % (Auto) 0.4 % (0.0-3.0) 07/04/18 06:30 Lymph # (Auto) 1.6 (1.2-3.4) 07/04/18 06:30 [place] # (Auto) 0.5 (0.1-0.6) 07/04/18 06:30 Eos # (Auto) 0.1 (0.0-0.7) 07/04/18 06:30 Baso # (Auto) 0.02 K/mm3 (0.0-2.0) 07/04/18 06:30 Absolute Neuts (auto) 2.63 (1.4-6.5) 07/04/18 06:30 Sodium 139 mmol/L (132-148) 07/04/18 06:30 Potassium 3.5 mmol/L (3.6-5.0) L 07/04/18 06:30 Chloride 107 mmol/L (98-107) 07/04/18 06:30 Carbon Dioxide 28 mmol/L (21-33) 07/04/18 06:30 Anion Gap 8 (10-20) L 07/04/18 06:30 BUN 9 mg/dL (7-21) 07/04/18 06:30 Creatinine 0.6 mg/dl (0.7-1.2) L 07/04/18 06:30 Est GFR ( Amer) > 60 07/04/18 06:30 Est GFR (Non-Af Amer) > 60 07/04/18 06:30 Random Glucose 83 mg/dL (70-110) 07/04/18 06:30 Calcium 8.5 mg/dL (8.4-10.5) 07/04/18 06:30 Phosphorus 2.7 mg/dL (2.5-4.5) 07/04/18 06:30 Magnesium 1.8 mg/dL (1.7-2.2) 07/04/18 06:30 Total Bilirubin 0.2 mg/dL (0.2-1.3) 07/04/18 06:30 AST 38 U/L (14-36) H 07/04/18 06:30 ALT 27 U/L (7-56) 07/04/18 06:30 Alkaline Phosphatase 47 U/L (38-126) 07/04/18 06:30 Lactate Dehydrogenase 541 U/L (333-699) 07/02/18 10:45 Total Creatine Kinase 110 U/L (35-230) 07/02/18 10:45 Troponin I < 0.01 ng/mL 07/02/18 10:45 Total Protein 6.7 g/dL (5.8-8.3) 07/04/18 06:30 Albumin 3.7 g/dL (3.0-4.8) 07/04/18 06:30 Globulin 2.9 gm/dL 07/04/18 06:30 Albumin/Globulin Ratio 1.3 (1.1-1.8) 07/04/18 06:30 Procalcitonin < 0.05 NG/ML (0.19-0.49) L 07/02/18 18:00 Urine Color Yellow (YELLOW) 07/02/18 13:00 Urine Appearance Turbid (CLEAR) 07/02/18 13:00 Urine pH 6.5 (4.7-8.0) 07/02/18 13:00 Ur Specific [place] 1.025 (1.005-1.035) 07/02/18 13:00 Urine Protein 100 mg/dL (<30 mg/dL) H 07/02/18 13:00 Urine Glucose (UA) Negative mg/dL (NEGATIVE) 07/02/18 13:00 Urine Ketones >=80 mg/dL (NEGATIVE) 07/02/18 13:00 Urine Blood Negative (NEGATIVE) 07/02/18 13:00 Urine Nitrate Positive (NEGATIVE) H 07/02/18 13:00 Urine Bilirubin Negative (NEGATIVE) 07/02/18 13:00 Urine Urobilinogen 0.2 E.U./dL (<1 E.U./dL) 07/02/18 13:00 Ur Leukocyte Esterase Negative Freda/uL (NEGATIVE) 07/02/18 13:00 Urine RBC None /hpf (0-2) 07/02/18 13:00 Urine WBC 0 - 2 /hpf (0-6) 07/02/18 13:00 Ur Epithelial Cells 3 - 4 /hpf (0-5) 07/02/18 13:00 Urine Bacteria Many /hpf (NONE) 07/02/18 13:00 Influenza Typ A,B (EIA) Negative for flu a/b (NEGATIVE) 07/02/18 10:45 Ur L.pneumophila Ag Negative (NEGATIVE) 07/02/18 16:00 - Hospital Course Hospital Course: Hospitalization Pt is a 48 yo male with a PMH of RA, fibro, HTN, asthma, OA, raynaud's syndrome, PE who presents to the ED complaining of a 1 week history of 101 fevers along with cough and nasal congestion. Pt complains of generalized weakness. Pt tried to use Marayn Selzer plus Cold and Flu but it did not help with her symptoms. Pt states she has been having trouble eating and drinking because everything tastes "nasty". Denies sick contacts. Denies travel. Reports chills and headache. Discharge Please follow up with primary care physician, Dr Davila within the next 3-5 days, please have repeat urine testing done once you have completed antibiotics. Please take Mucinex for the next 4 days for cough, you are being sent with a prescription. Please continue taking Tamiflu twice a day, starting tonight, for six more doses. Please resume all home medications as previously prescribed. Found to be positive for a urinary tract infection. Given an antibiotic, Ciprofloxacin. Please take this antibiotic, Ciprofloxacin 500mg Twice a day for the next 5 days for a total of 10 doses, make sure to finish the entire bottle of capsules. - Date & Time of H&P Date of H&P: 07/04/18 Time of H&P: 06:00 Discharge Exam - Head Exam Head Exam: ATRAUMATIC, NORMAL INSPECTION, NORMOCEPHALIC - Eye Exam Eye Exam: EOMI - ENT Exam ENT Exam: Mucous Membranes Moist - Respiratory Exam Respiratory Exam: Wheezes. absent: Accessory Muscle Use, Respiratory Distress - Cardiovascular Exam Cardiovascular Exam: RRR, +S1, +S2. absent: Diastolic murmur, Systolic Murmur - GI/Abdominal Exam GI & Abdominal Exam: Normal Bowel Sounds - Extremities Exam Extremities exam: full ROM, pedal pulses present - Neurological Exam Neurological exam: Alert, Oriented x3 - Psychiatric Exam Psychiatric exam: Normal Affect, Normal Mood - Skin Skin Exam: Dry, Normal Color, Warm Discharge Plan - Discharge Medications Prescriptions: Ciprofloxacin HCl [Cipro] 500 mg PO Q12 #14 tablet guaiFENesin [mucINEX] 600 mg PO BID #8 tab RX: Oseltamivir Cap [Tamiflu Cap] 75 mg PO BID #6 capsule - Follow Up Plan Condition: FAIR Disposition: HOME/ ROUTINE Instructions: Hypokalemia (DC), Cough, Runny Nose, and the Common Cold (DC), Fever, Adult (DC), Pneumococcal Polysaccharide Vaccine (23-Valent), Flu Vaccine Additional Instructions: 1. Please follow up with your primary care physician, Dr Davila within the next 3-5 days, please have repeat urine testing done once you have completed antibiotics. 2. Please take your Mucinex for the next 4 days for your cough, you are being sent with a prescription 3. Please continue taking your Tamiflu twice a day, starting tonight, for six more doses 4. Please resume all home medications as previously prescribed. 5. You were found to be positive for a urinary tract infection. You are being given an antibiotic, Ciprofloxacin. Please take this antibiotic, Ciprofloxacin 500mg Twice a day for the next 5 days for a total of 10 doses, make sure to finish the entire bottle of capsules, PLEASE TAKE WITH FOOD. 6. If your symptoms return, please go to the nearest emergency department Referrals: Tejinder Davila DO [Family Provider] - <Talia Baets - Last Filed: 07/09/18 18:31> Provider - Provider Date of Admission: 07/02/18 13:00 Attending physician: Talia Bates DO Consults: 07/02/18 14:21 Physician Consult Routine Comment: Consulting Provider: Parker Sims Consulting Physician: Parker Sims Reason for Consult: fever Hospital Course - Lab Results Lab Results: Micro Results 07/02/18 16:00 Blood Blood Culture - Final NO GROWTH AFTER 5 DAYS 07/02/18 16:00 Blood Gram Stain - Final TEST NOT PERFORMED 07/02/18 13:00 Urine Random Urine Culture - Final Escherichia Coli 07/02/18 18:30 Naris MRSA Culture (Admit) - Final MRSA NOT DETECTED Most Recent Lab Values WBC 4.9 10^3/uL (4.5-11.0) 07/04/18 06:30 RBC 3.71 10^6/uL (3.5-6.1) 07/04/18 06:30 Hgb 10.4 g/dL (12.0-16.0) L 07/04/18 06:30 Hct 31.5 % (36.0-48.0) L 07/04/18 06:30 MCV 84.9 fl (80.0-105.0) 07/04/18 06:30 MCH 28.0 pg (25.0-35.0) 07/04/18 06:30 MCHC 33.0 g/dl (31.0-37.0) 07/04/18 06:30 RDW 17.1 % (11.5-14.5) H 07/04/18 06:30 Plt Count 166 10^3/uL (120.0-450.0) 07/04/18 06:30 MPV 9.5 fl (7.0-11.0) 07/04/18 06:30 Neut % (Auto) 54.2 % (50.0-68.0) 07/04/18 06:30 Lymph % (Auto) 33.4 % (22.0-35.0) 07/04/18 06:30 [place] % (Auto) 10.1 % (1.0-6.0) H 07/04/18 06:30 Eos % (Auto) 1.9 % (1.5-5.0) 07/04/18 06:30 Baso % (Auto) 0.4 % (0.0-3.0) 07/04/18 06:30 Lymph # (Auto) 1.6 (1.2-3.4) 07/04/18 06:30 [place] # (Auto) 0.5 (0.1-0.6) 07/04/18 06:30 Eos # (Auto) 0.1 (0.0-0.7) 07/04/18 06:30 Baso # (Auto) 0.02 K/mm3 (0.0-2.0) 07/04/18 06:30 Absolute Neuts (auto) 2.63 (1.4-6.5) 07/04/18 06:30 Sodium 139 mmol/L (132-148) 07/04/18 06:30 Potassium 3.5 mmol/L (3.6-5.0) L 07/04/18 06:30 Chloride 107 mmol/L (98-107) 07/04/18 06:30 Carbon Dioxide 28 mmol/L (21-33) 07/04/18 06:30 Anion Gap 8 (10-20) L 07/04/18 06:30 BUN 9 mg/dL (7-21) 07/04/18 06:30 Creatinine 0.6 mg/dl (0.7-1.2) L 07/04/18 06:30 Est GFR ( Amer) > 60 07/04/18 06:30 Est GFR (Non-Af Amer) > 60 07/04/18 06:30 Random Glucose 83 mg/dL (70-110) 07/04/18 06:30 Calcium 8.5 mg/dL (8.4-10.5) 07/04/18 06:30 Phosphorus 2.7 mg/dL (2.5-4.5) 07/04/18 06:30 Magnesium 1.8 mg/dL (1.7-2.2) 07/04/18 06:30 Total Bilirubin 0.2 mg/dL (0.2-1.3) 07/04/18 06:30 AST 38 U/L (14-36) H 07/04/18 06:30 ALT 27 U/L (7-56) 07/04/18 06:30 Alkaline Phosphatase 47 U/L (38-126) 07/04/18 06:30 Lactate Dehydrogenase 541 U/L (333-699) 07/02/18 10:45 Total Creatine Kinase 110 U/L (35-230) 07/02/18 10:45 Troponin I < 0.01 ng/mL 07/02/18 10:45 Total Protein 6.7 g/dL (5.8-8.3) 07/04/18 06:30 Albumin 3.7 g/dL (3.0-4.8) 07/04/18 06:30 Globulin 2.9 gm/dL 07/04/18 06:30 Albumin/Globulin Ratio 1.3 (1.1-1.8) 07/04/18 06:30 Procalcitonin < 0.05 NG/ML (0.19-0.49) L 07/02/18 18:00 Urine Color Yellow (YELLOW) 07/02/18 13:00 Urine Appearance Turbid (CLEAR) 07/02/18 13:00 Urine pH 6.5 (4.7-8.0) 07/02/18 13:00 Ur Specific [place] 1.025 (1.005-1.035) 07/02/18 13:00 Urine Protein 100 mg/dL (<30 mg/dL) H 07/02/18 13:00 Urine Glucose (UA) Negative mg/dL (NEGATIVE) 07/02/18 13:00 Urine Ketones >=80 mg/dL (NEGATIVE) 07/02/18 13:00 Urine Blood Negative (NEGATIVE) 07/02/18 13:00 Urine Nitrate Positive (NEGATIVE) H 07/02/18 13:00 Urine Bilirubin Negative (NEGATIVE) 07/02/18 13:00 Urine Urobilinogen 0.2 E.U./dL (<1 E.U./dL) 07/02/18 13:00 Ur Leukocyte Esterase Negative Freda/uL (NEGATIVE) 07/02/18 13:00 Urine RBC None /hpf (0-2) 07/02/18 13:00 Urine WBC 0 - 2 /hpf (0-6) 07/02/18 13:00 Ur Epithelial Cells 3 - 4 /hpf (0-5) 07/02/18 13:00 Urine Bacteria Many /hpf (NONE) 07/02/18 13:00 Influenza Typ A,B (EIA) Negative for flu a/b (NEGATIVE) 07/02/18 10:45 Ur L.pneumophila Ag Negative (NEGATIVE) 07/02/18 16:00 Attending/Attestation - Attestation I have personally seen and examined this patient.: Yes I have fully participated in the care of the patient.: Yes I have reviewed all pertinent clinical information, including history, physical exam and plan: Yes Notes (Text): Please note this DC summary is for 07/04/18 Patient seen and examined by me with resident 10:10AM and prior to discharge on 07/04/18. Case including discharge plan discussed with resident. Agree with above with following additions/corrections. Patient is a 48-year-old female with past medical history significant for hyperlipidemia, mild intermittent asthma, fibromyalgia, rheumatoid arthritis, essential hypertension, osteoarthritis, and Raynaud's syndrome the presented to the emergency room with fever. Please see H&P for full details. Patient was admitted with fevers, SIRS, severe hypokalemia, essential hypertension, RA, fibromyalgia, OA, and mild intermittent asthma. Influenza was negative. However, patient had symptoms of the flu and was started on Tamiflu. Patient was treated with IV fluids. ID was consulted. Patient had no leukocytosis. Blood cultures were negative. Procalcitonin was <0.05. Patient was also found to have a potassium of 2.5. on admission. Patient was given replacement with resolution. Patient was advised to stop home HCTZ. However, patient stated she does not want to stop it until she sees her primary care doctor. Patient understands that her hypokalemia may be secondary to this medication. Patient was continued on her home medications for RA, fibromyalgia, and OA. Patient was also placed on singulair and nebulizer treatments as needed for history of intermittent mild asthma. On day of discharge, urine culture was positive for E. Coli and patient stated her urine has a foul smell. This was discussed with ID who recommended outpatient treatment with cipro. Patient was given a prescription for this. Patient was feeling much better. Fevers resolved. Patient cleared for discharge by ID. Patient was discharged home. On day of discharge, patient stated she was feeling much better. Fever resolved. Cough improved. Nasal congestion improved. Patient denies any shortness of breath or chest pain. No palpitations. No nausea or vomiting. No abdominal pain. Patient was tolerating diet. No headaches or lightheadedness. No dizziness. No c hills. No dysuria. No diarrhea or constipation. Physical exam: General: Awake and alert lying in bed in no acute distress HEENT: Normocephalic, atraumatic. Extraocular muscles intact, pupils equal and reactive, no scleral icterus. Oropharynx is pink and moist. No pharyngeal erythema or exudate appreciated. Neck is supple. Hearing grossly intact. Nose externally unremarkable. Cardiovascular: Regular rhythm. Normal S1 and S2. No murmurs, rubs, or gallops appreciated Pulmonary: Normal respiratory effort. No rhonchi, rales, or wheezing appreciated. Gastrointestinal: Soft, nondistended. Nontender. Positive bowel sounds all 4 quadrants. No guarding. Musculoskeletal: Moves all extremities. No calf tenderness. No edema appreciated Central nervous system: AAOx3, CN 2-12 grossly intact. 5 out of 5 muscle strength all extremities. Dermatologic: Skin warm and dry. Please see chart for full details. Follow up instructions: Patient with PMD within 3-5 days. Patient to complete Tamiflu. Patient to take all other medications as prescribed. All instructions explained to the patient in detail. Patient both understands and agrees to all instructions. Written instructions also given. Time spent in discharging the patient including chart review, medication reconciliation, discussion with the patient, medical laboratory technicians, consultants, and nursing staff was approximately 40 minutes.
[2018-07-04 15:28] VITALS: BP 118/80; PULSE 72; TEMP 98.4
== END 2018-07-04 16:47 | disposition home or self-care (01) ==
LOC: ED 09:25 → ERH 13:00 → 5RNO 07-03 15:19
PROVIDERS: ADMIT Hospitalist; ATTEND Hospitalist
DX: R50.9 Fever, unspecified (principal); R05 Cough; E87.6 Hypokalemia; N39.0 Urinary tract infection, site not specified; B96.20 Unspecified Escherichia coli [E. coli] as the cause of diseases classified elsewhere; J45.20 Mild intermittent asthma, uncomplicated; I10 Essential (primary) hypertension; M06.9 Rheumatoid arthritis, unspecified; E78.5 Hyperlipidemia, unspecified; I73.00 Raynaud's syndrome without gangrene; M79.7 Fibromyalgia; Z86.711 Personal history of pulmonary embolism; Z79.82 Long term (current) use of aspirin
CPT/HCPCS: 36415; 71046; 80053; 81001; 82550; 83615; 83735; 84100; 84145; 84484; 85025; 87040; 87081; 87086; 87181; 87449; 87804; 93005; 94640; 96360; 96361; 99285; G0378; J3480; J7030

== ENCOUNTER 2018-09-12 12:20 | Outpatient (CLI) | payer MEDICARE, OTHER | END 2018-09-12 12:21 | disposition home or self-care (01) | LOC: RAD 12:20 ==